=== PATIENT | female | born 1955 | race Caucasian/White ===

== ENCOUNTER 2017-04-15 18:40 | Emergency (ER) | payer MEDICARE ==
[~2017-04-15] VITALS: Ht 162.6 cm; Wt 100.0 kg
[~2017-04-15 18:40] MED LIST: ALBUTEROL S2.5 MG/.5 IN; CITALOPRAM20 MG PO; GLIPIZIDE10 M2 OR; HYDROCHLORO25 MG/TAB PO; LANTUS SC; LANTUS100 MG/ML SC; LEVOTHYROXIN100 MC1 PO; LEVOTHYROXIN200 MC2 PO; LOVASTATIN20 MG PO; MEDDOSEPAK PO; METFORMIN500 MG PO; NAPROSYN500 MG PO; NEBULIZE2; NOVOLOG SC; RANITIDINE150 MG PO; VENTOLIN HFA IN; ZITHROMAX250 MG PO
[2017-04-15 18:58] LABS: HEMATOCRIT 37.9 % (37.0-47.0); HEMOGLOBIN 12.2 g/dl (12.0-16.0); IMMATURE GRANULOCYTES 0.5 % (0.0-1.0); MEAN CELL VOLUME 89.8 fL CALC (80.0-100.0); MEAN CORPUSCULAR HGB 28.9 pG CALC (26.0-32.0); MEAN CORPUSCULAR HGB CONC 32.2 g/L CALC (32.0-36.0); NEUT# 5.42 thou/uL (2.00-7.15); RED BLOOD COUNT 4.22 mill/uL (4.20-5.60)
[2017-04-15 19:15] LABS: ACT PARTIAL THROMBO TIME 25.5 SECONDS (20.0-32.5); PROTHROMBIN TIME 10.7 SECONDS (9.0-12.5)
[2017-04-15 19:17] LABS: ALBUMIN 4.1 g/dL (3.2-5.0); ALKALINE PHOSPHATASE 483 u/l (38-126); ANION GAP 15 (6-22 (CALC)); BILIRUBIN, TOTAL 1.1 mg/dL (0.0-1.4); BUN 20 mg/dL (8-23); BUN/CREATININE RATIO 19 (12-20 (CALC)); CALCIUM 9.7 mg/dL (8.4-10.2); CARBON DIOXIDE 27 mmol/l (22-30); CHLORIDE 98 mmol/l (95-108); CREATININE 1.1 mg/dL (0.5-1.0); GFR 50 ML/MIN (>=60 (CALC)); GFR FOR AFR.AMER. > 60 ML/MIN (>=60 (CALC)); POTASSIUM 4.6 mmol/l (3.5-5.1); SGOT/AST 103 u/l (9-36); SGPT/ALT 76 u/l (11-66); SODIUM 135 mmol/l (137-146); TOTAL PROTEIN 8.2 g/dL (6.3-8.2)
[2017-04-15 19:21] LABS: GLUCOSE 474 mg/dL (82-115)
[2017-04-15 19:28] LABS: MYOGLOBIN 63 ng/mL (0 - 62)
[2017-04-15 19:57] VITALS: BP 120/74
== END 2017-04-15 20:03 | disposition short-term general hospital (02) ==
LOC: ED 18:40
PROVIDERS: Emergency Medicine
DX: I63.9 Cerebral infarction, unspecified (principal); G81.91 Hemiplegia, unspecified affecting right dominant side; R20.0 Anesthesia of skin; E11.9 Type 2 diabetes mellitus without complications; E03.9 Hypothyroidism, unspecified; Z91.14 Patient's other noncompliance with medication regimen; I10 Essential (primary) hypertension; F41.9 Anxiety disorder, unspecified; J45.909 Unspecified asthma, uncomplicated; F17.210 Nicotine dependence, cigarettes, uncomplicated; R29.706 NIHSS score 6; Z79.4 Long term (current) use of insulin
CPT/HCPCS: J2997

== ENCOUNTER 2018-01-13 12:37 | Inpatient (IN) | payer MEDICARE ==
[~2018-01-13] VITALS: Ht 162.6 cm; Wt 122.0 kg
[2018-01-13 13:26] LABS: IMMATURE GRANULOCYTES 0.3 % (0.0-5.0); NEUT# 4.46 thou/uL (2.00-7.15); RED BLOOD COUNT 3.23 mill/uL (4.20-5.60); RED CELL DISTRI WIDTH 21.1 % (11.5-15.5)
[2018-01-13 13:29] LABS: HEMATOCRIT 29.4 % (37.0-47.0); HEMOGLOBIN 9.7 g/dl (12.0-16.0)
[2018-01-13 13:40] LABS: PROTHROMBIN TIME 11.5 SECONDS (9.0-12.5)
[2018-01-13 14:14] LABS: CREATININE 2.2 mg/dL (0.5-1.0); POTASSIUM 5.8 mmol/l (3.5-5.1)
[2018-01-13 14:15] LABS: ALBUMIN 3.4 g/dL (3.2-5.0); BILIRUBIN, TOTAL 0.4 mg/dL (0.0-1.4); TOTAL PROTEIN 6.6 g/dL (6.3-8.2)
[2018-01-13 16:45] VITALS: BP 96/52
[2018-01-13 19:00] VITALS: BP 105/63
[2018-01-14 00:15] VITALS: BP 105/62
[2018-01-14 02:11] LABS: URINE BILIRUBIN - DIPSTICK NEGATIVE (NEGATIVE); URINE BLOOD DIPSTICK NEGATIVE (NEGATIVE); URINE COLOR YELLOW; URINE GLUCOSE - DIPSTICK NEGATIVE (NEGATIVE); URINE KETONE NEGATIVE (NEGATIVE); URINE LEUK ESTERASE NEGATIVE (Negative); URINE NITRITE - DIPSTICK NEGATIVE (Negative); URINE PH 5.5 (4.5-8.0); URINE PROTEIN - DIPSTICK NEGATIVE (NEG-TRACE); URINE UROBILINOGEN - DIPSTICK 0.2 E.U./dL (0.2)
[2018-01-14 02:17] LABS: URINE CLARITY CLEAR
[2018-01-14 04:50] VITALS: BP 102/62
[2018-01-14 05:45] LABS: HEMATOCRIT 25.6 % (37.0-47.0); HEMOGLOBIN 8.1 g/dl (12.0-16.0); MEAN CELL VOLUME 93.1 fL CALC (80.0-100.0); MEAN CORPUSCULAR HGB 29.5 pG CALC (26.0-32.0); MEAN CORPUSCULAR HGB CONC 31.6 g/L CALC (32.0-36.0); RED BLOOD COUNT 2.75 mill/uL (4.20-5.60); RED CELL DISTRI WIDTH 21.2 % (11.5-15.5)
[2018-01-14 06:05] LABS: CREATININE 1.7 mg/dL (0.5-1.0); MAGNESIUM 1.7 mg/dL (1.6-2.3)
[2018-01-14 06:12] LABS: POTASSIUM 5.6 mmol/l (3.5-5.1)
[2018-01-14 07:48] VITALS: BP 107/55
[2018-01-14 11:00] VITALS: BP 115/58
[2018-01-14] MEDS ORDERED: LASIX40 MG PO (13:06)
[2018-01-14] MEDS ORDERED: ASPIRIN LOW DOS81 M1 PO (13:07)
[2018-01-14] MEDS ORDERED: DITROPAN PO (13:08)
[2018-01-14] MEDS ORDERED: LISINOPRIL20 MG PO (13:08)
[2018-01-14] MEDS ORDERED: GABAPENTIN600 MG PO (13:09)
[2018-01-14 16:00] VITALS: BP 130/55
[2018-01-14 19:33] VITALS: BP 109/54
[2018-01-15 00:34] VITALS: BP 130/71
[2018-01-15 04:24] VITALS: BP 97/54
[2018-01-15 05:13] LABS: HEMATOCRIT 24.9 % (37.0-47.0); HEMOGLOBIN 8.1 g/dl (12.0-16.0); IMMATURE GRANULOCYTES 0.3 % (0.0-5.0); MEAN CELL VOLUME 92.6 fL CALC (80.0-100.0); MEAN CORPUSCULAR HGB 30.1 pG CALC (26.0-32.0); MEAN CORPUSCULAR HGB CONC 32.5 g/L CALC (32.0-36.0); NEUT# 3.8 thou/uL (2.00-7.15); RED BLOOD COUNT 2.69 mill/uL (4.20-5.60); RED CELL DISTRI WIDTH 20.7 % (11.5-15.5)
[2018-01-15 05:31] LABS: CREATININE 1.3 mg/dL (0.5-1.0); POTASSIUM 4.7 mmol/l (3.5-5.1)
[2018-01-15 08:09] VITALS: BP 130/59
[2018-01-15 12:09] VITALS: BP 128/68
[2018-01-15 16:30] VITALS: BP 121/63
[2018-01-15 19:05] VITALS: BP 117/61
[2018-01-16 00:20] VITALS: BP 132/63
[2018-01-16 04:42] VITALS: BP 137/61
[2018-01-16 07:52] VITALS: BP 148/69
[2018-01-16 12:00] VITALS: BP 137/68
[2018-01-16 19:37] VITALS: BP 134/61
[2018-01-17] VITALS (18 sets, daily range): BP systolic 82–165; BP diastolic 38–76
[2018-01-18 04:52] VITALS: BP 155/67
[2018-01-18 05:59] LABS: HEMATOCRIT 28.5 % (37.0-47.0); HEMOGLOBIN 9.3 g/dl (12.0-16.0); IMMATURE GRANULOCYTES 0.4 % (0.0-5.0); MEAN CELL VOLUME 89.9 fL CALC (80.0-100.0); MEAN CORPUSCULAR HGB 29.3 pG CALC (26.0-32.0); MEAN CORPUSCULAR HGB CONC 32.6 g/L CALC (32.0-36.0); NEUT# 7.94 thou/uL (2.00-7.15); RED BLOOD COUNT 3.17 mill/uL (4.20-5.60); RED CELL DISTRI WIDTH 21.2 % (11.5-15.5)
[2018-01-18 06:02] LABS: BUN 16 mg/dL (8-23); CARBON DIOXIDE 26 mmol/l (22-30); CHLORIDE 107 mmol/l (95-108); GFR 56 ML/MIN (>=60 (CALC)); GFR FOR AFR.AMER. > 60 ML/MIN (>=60 (CALC)); POTASSIUM 4.6 mmol/l (3.5-5.1); SODIUM 138 mmol/l (137-146)
[2018-01-18 06:16] LABS: ALBUMIN 2.6 g/dL (3.2-5.0)
[2018-01-18 08:00] VITALS: BP 131/56
[2018-01-18 10:58] VITALS: BP 118/68
[2018-01-18 15:18] VITALS: BP 107/68
[2018-01-18 19:00] VITALS: BP 136/61
[2018-01-19 00:20] VITALS: BP 123/68
[2018-01-19 04:44] VITALS: BP 121/63
[2018-01-19 05:31] LABS: HEMATOCRIT 27.8 % (37.0-47.0); IMMATURE GRANULOCYTES 0.5 % (0.0-5.0); MEAN CELL VOLUME 90.6 fL CALC (80.0-100.0); MEAN CORPUSCULAR HGB 29.3 pG CALC (26.0-32.0); MEAN CORPUSCULAR HGB CONC 32.4 g/L CALC (32.0-36.0); NEUT# 6.02 thou/uL (2.00-7.15); RED BLOOD COUNT 3.07 mill/uL (4.20-5.60); RED CELL DISTRI WIDTH 20.9 % (11.5-15.5)
[2018-01-19 05:42] LABS: CREATININE 1.2 mg/dL (0.5-1.0); POTASSIUM 4.4 mmol/l (3.5-5.1)
[2018-01-19 09:10] VITALS: BP 114/41
[2018-01-19 11:12] VITALS: BP 117/64
[2018-01-19 14:57] VITALS: BP 124/69
[2018-01-19 20:00] VITALS: BP 125/58
[2018-01-20 00:06] VITALS: BP 94/51
[2018-01-20 04:00] VITALS: BP 127/54
[2018-01-20 05:07] LABS: HEMATOCRIT 27.7 % (37.0-47.0); HEMOGLOBIN 8.7 g/dl (12.0-16.0)
[2018-01-20 08:12] VITALS: BP 116/63
[2018-01-20 11:12] VITALS: BP 117/49
[2018-01-20] MEDS ORDERED: CELEXA40 M1 PO (12:14)
[2018-01-20] MEDS ORDERED: ATORVASTATIN CA40 MG PO (12:15)
[2018-01-20] MEDS ORDERED: ALDACTONE25 MG PO (12:16)
[2018-01-20] MEDS ORDERED: LEVOTHYROXIN125 MCG PO (12:16)
[2018-01-20] MEDS ORDERED: NOVOLIN 70/30 SC (12:17)
[2018-01-20] MEDS ORDERED: ASPIRIN EC325 MG PO (12:21)
[2018-01-20] MEDS ORDERED: PERCOCET 10/31 COMBO PO (12:21)
[2018-01-20 15:25] VITALS: BP 118/50
== END 2018-01-20 17:56 | DRG 481 ==
LOC: ED 12:37 → ED-I 15:22 → ED 15:55 → MS2 15:56
PROVIDERS: Emergency Medicine; Internal Medicine Nephrology; Nurse Practitioner; Nurse Practitioner Family; Orthopaedic Surgery; ADMIT Internal Medicine; ATTEND Internal Medicine
PROC: 0T9B70Z Drainage of Bladder with Drainage Device, Via Natural or Artificial Opening (ICD-10-PCS; 2018-01-14)
PROC: 0QSB04Z Reposition Right Lower Femur with Internal Fixation Device, Open Approach (ICD-10-PCS; principal; 2018-01-17)
PROC: 30233N1 Transfusion of Nonautologous Red Blood Cells into Peripheral Vein, Percutaneous Approach (ICD-10-PCS; 2018-01-17)
PROC: 30233N1 Transfusion of Nonautologous Red Blood Cells into Peripheral Vein, Percutaneous Approach (ICD-10-PCS; 2018-01-17)
PROC: 0T9B70Z Drainage of Bladder with Drainage Device, Via Natural or Artificial Opening (ICD-10-PCS; 2018-01-19)
DX: S72.451A Displaced supracondylar fracture without intracondylar extension of lower end of right femur, initial encounter for closed fracture (principal); Z68.42 Body mass index [BMI] 45.0-49.9, adult; N17.9 Acute kidney failure, unspecified; I12.9 Hypertensive chronic kidney disease with stage 1 through stage 4 chronic kidney disease, or unspecified chronic kidney disease; E11.22 Type 2 diabetes mellitus with diabetic chronic kidney disease; N18.3 Chronic kidney disease, stage 3 (moderate); D63.1 Anemia in chronic kidney disease; E86.0 Dehydration; T50.1X5A Adverse effect of loop [high-ceiling] diuretics, initial encounter; E66.01 Morbid (severe) obesity due to excess calories; E11.65 Type 2 diabetes mellitus with hyperglycemia; E87.5 Hyperkalemia; E03.9 Hypothyroidism, unspecified; E78.5 Hyperlipidemia, unspecified; F17.210 Nicotine dependence, cigarettes, uncomplicated; I69.313 Psychomotor deficit following cerebral infarction; K59.00 Constipation, unspecified; R33.8 Other retention of urine; F32.9 Major depressive disorder, single episode, unspecified; W18.30XA Fall on same level, unspecified, initial encounter; Z79.4 Long term (current) use of insulin
CPT/HCPCS: P9016

== ENCOUNTER → 2018-03-24 | Outpatient (REF) | payer MEDICARE ==
[~2018-03-24] MED LIST changes: +ALDACTONE25 MG PO; +ASPIRIN EC325 MG PO; +ASPIRIN LOW DOS81 M1 PO; +ATORVASTATIN CA40 MG PO; +CELEXA40 M1 PO; +DITROPAN PO; +GABAPENTIN600 MG PO; +LASIX40 MG PO; +LEVOTHYROXIN125 MCG PO; +LISINOPRIL20 MG PO; +NOVOLIN 70/30 SC; +PERCOCET 10/31 COMBO PO
== END | disposition home or self-care (01) ==
LOC: ULTRASND 12:21
PROVIDERS: ATTEND Internal Medicine Nephrology
DX: R60.0 Localized edema (principal); N39.0 Urinary tract infection, site not specified; B96.20 Unspecified Escherichia coli [E. coli] as the cause of diseases classified elsewhere

== ENCOUNTER 2018-07-19 16:00 | Outpatient (RCR) | payer MEDICARE | END 2018-08-10 08:53 | disposition home or self-care (01) | LOC: PT 16:00 | PROVIDERS: ATTEND Orthopaedic Surgery | DX: Z47.89 Encounter for other orthopedic aftercare (principal); S72.8X1D Other fracture of right femur, subsequent encounter for closed fracture with routine healing ==

== ENCOUNTER 2019-07-17 | Emergency (ER) | payer MEDICARE ==
[2019-07-17] MEDS ORDERED: NOVOLIN N100 UNIT/1 SC (15:55)
[2019-07-17] MEDS ORDERED: NOVOLIN R100 UNIT/M SC (15:55)
[2019-07-17] MEDS ORDERED: VITAMIN D1000 UNIT PO (15:57)
[2019-07-17] MEDS ORDERED: METOLAZONE5 MG PO (16:01)
[2019-07-17] MEDS ORDERED: HYDROCODONE BIT1 TA7 PO (16:11)
[2019-07-17] MEDS ORDERED: DICLOFENAC SODI75 MG PO (16:36)
[2019-07-17 16:39] LABS: IMMATURE GRANULOCYTES 0.2 % (0.0-5.0); MEAN CELL VOLUME 95.2 fL CALC (80.0-100.0); MEAN CORPUSCULAR HGB 31.1 pG CALC (26.0-32.0); MEAN CORPUSCULAR HGB CONC 32.7 g/L CALC (32.0-36.0); NEUT# 2.61 thou/uL (2.00-7.15); RED BLOOD COUNT 3.92 mill/uL (4.20-5.60); RED CELL DISTRI WIDTH 13.4 % (11.5-15.5)
[2019-07-17 16:40] LABS: HEMATOCRIT 37.3 % (37.0-47.0); HEMOGLOBIN 12.2 g/dl (12.0-16.0)
[2019-07-17 17:01] LABS: ALKALINE PHOSPHATASE 138 u/l (38-126); ANION GAP 13 (6-22 (CALC)); BUN 23 mg/dL (8-23); BUN/CREATININE RATIO 18 (12-20 (CALC)); CARBON DIOXIDE 32 mmol/l (22-30); CHLORIDE 95 mmol/l (95-108); CREATININE 1.3 mg/dL (0.5-1.0); GFR 41 ML/MIN (>=60 (CALC)); GFR FOR AFR.AMER. 50 ML/MIN (>=60 (CALC)); POTASSIUM 4.3 mmol/l (3.5-5.1); SGOT/AST 38 u/l (9-36); SODIUM 135 mmol/l (137-146); TOTAL PROTEIN 7.7 g/dL (6.3-8.2)
[2019-07-17 17:12] LABS: MYOGLOBIN 117 ng/mL (0 - 62)
[2019-07-17 17:13] LABS: BILIRUBIN, TOTAL 0.6 mg/dL (0.0-1.4)
[2019-07-17] MEDS ORDERED: FLONASE AL50 MCG/ACT (18:19)
[2019-07-17] MEDS ORDERED: GENTAMICIN SULF5 ML OD (18:19)
[2019-07-17] MEDS ORDERED: KEFLEX500 M1 PO (18:19)
== END 2019-07-17 19:08 | disposition home or self-care (01) ==
PROVIDERS: Emergency Medicine
DX: J32.9 Chronic sinusitis, unspecified (principal); J02.9 Acute pharyngitis, unspecified; I69.998 Other sequelae following unspecified cerebrovascular disease; E11.9 Type 2 diabetes mellitus without complications; I10 Essential (primary) hypertension; Z79.4 Long term (current) use of insulin

== ENCOUNTER 2019-12-26 10:03 | Emergency (ER) | payer MEDICARE ==
[~2019-12-26] VITALS: Ht 162.6 cm; Wt 125.0 kg
[~2019-12-26 10:03] MED LIST changes: +DICLOFENAC SODI75 MG PO; +FLONASE AL50 MCG/ACT; +GENTAMICIN SULF5 ML OD; +HYDROCODONE BIT1 TA7 PO; +KEFLEX500 M1 PO; +METOLAZONE5 MG PO; +NOVOLIN N100 UNIT/1 SC; +NOVOLIN R100 UNIT/M SC; +VITAMIN D1000 UNIT PO
[2019-12-26] MEDS ORDERED: NAPROXEN500 MG PO (11:43)
[2019-12-26 11:50] VITALS: BP 120/58
== END 2019-12-26 12:12 | disposition home or self-care (01) ==
LOC: ED 10:03
PROC: 0HQFXZZ Repair Right Hand Skin, External Approach (ICD-10-PCS; principal; 2019-12-26)
DX: S52.501A Unspecified fracture of the lower end of right radius, initial encounter for closed fracture (principal); S00.83XA Contusion of other part of head, initial encounter; S61.411A Laceration without foreign body of right hand, initial encounter; M25.462 Effusion, left knee; M25.461 Effusion, right knee; E11.9 Type 2 diabetes mellitus without complications; I10 Essential (primary) hypertension; V00.811A Fall from moving wheelchair (powered), initial encounter; Y92.009 Unspecified place in unspecified non-institutional (private) residence as the place of occurrence of the external cause; Z79.4 Long term (current) use of insulin

== ENCOUNTER 2020-07-16 16:16 | Inpatient (IN) | payer MEDICARE ==
[~2020-07-16] VITALS: Ht 162.6 cm; Wt 115.0 kg
[~2020-07-16 16:16] MED LIST changes: +NAPROXEN500 MG PO
[2020-07-16 17:47] LABS: HEMATOCRIT 30.9 % (37.0-47.0); HEMOGLOBIN 9.7 g/dl (12.0-16.0); MEAN CELL VOLUME 101.3 fL CALC (80.0-100.0); MEAN CORPUSCULAR HGB 31.8 pG CALC (26.0-32.0); MEAN CORPUSCULAR HGB CONC 31.4 g/dL CAL (32.0-36.0); NEUT# 1.42 thou/uL (2.00-7.15); RED BLOOD COUNT 3.05 mill/uL (4.20-5.60); RED CELL DISTRI WIDTH 14.8 % (11.5-15.5)
[2020-07-16 17:57] LABS: ALBUMIN 3.4 g/dL (3.2-5.0); ALKALINE PHOSPHATASE 117 u/l (38-126); ANION GAP 11 (6-22 (CALC)); BILIRUBIN, TOTAL 0.7 mg/dL (0.0-1.4); BUN/CREATININE RATIO 24 (12-20 (CALC)); CARBON DIOXIDE 31 mmol/l (22-30); CHLORIDE 98 mmol/l (95-108); CREATININE 2.1 mg/dL (0.5-1.0); GFR 24 ML/MIN (>=60 (CALC)); GFR FOR AFR.AMER. 29 ML/MIN (>=60 (CALC)); POTASSIUM 3.9 mmol/l (3.5-5.1); SGOT/AST 40 u/l (9-36); SODIUM 137 mmol/l (137-146); TOTAL PROTEIN 6.7 g/dL (6.3-8.2)
[2020-07-16 18:01] LABS: BUN 51 mg/dL (8-23)
[2020-07-16 21:26] LABS: URINE BILIRUBIN - DIPSTICK NEGATIVE (NEGATIVE); URINE BLOOD DIPSTICK NEGATIVE (NEGATIVE); URINE COLOR YELLOW; URINE GLUCOSE - DIPSTICK NEGATIVE (NEGATIVE); URINE KETONE NEGATIVE (NEGATIVE); URINE LEUK ESTERASE NEGATIVE (NEGATIVE); URINE NITRITE - DIPSTICK NEGATIVE (Negative); URINE PH 5.5 (4.5-8.0); URINE PROTEIN - DIPSTICK NEGATIVE (NEG-TRACE); URINE UROBILINOGEN - DIPSTICK 0.2 E.U./dL (0.2)
[2020-07-16 22:47] VITALS: BP 145/62
[2020-07-17] VITALS: BP 119/63
[2020-07-17 04:00] VITALS: BP 137/59
[2020-07-17 06:35] LABS: INTERNATIONAL NORMALIZED RATIO 1.2 RATIO (0.7-1.3); PROTHROMBIN TIME 11.6 SECONDS (9.0-12.5)
[2020-07-17 06:40] LABS: HEMATOCRIT 31.4 % (37.0-47.0); MEAN CORPUSCULAR HGB 31.8 pG CALC (26.0-32.0); MEAN CORPUSCULAR HGB CONC 31.8 g/dL CAL (32.0-36.0); NEUT# 1.43 thou/uL (2.00-7.15); RED BLOOD COUNT 3.14 mill/uL (4.20-5.60); RED CELL DISTRI WIDTH 14.5 % (11.5-15.5)
[2020-07-17 06:58] LABS: ALBUMIN 3.1 g/dL (3.2-5.0); BILIRUBIN, TOTAL 0.7 mg/dL (0.0-1.4); CHOLESTEROL HDL RATIO 2.3 (<4.4 (CALC)); POTASSIUM 4.1 mmol/l (3.5-5.1); TOTAL PROTEIN 6.2 g/dL (6.3-8.2)
[2020-07-17 08:00] VITALS: BP 115/63
[2020-07-17 11:15] VITALS: BP 115/56
[2020-07-17 16:50] VITALS: BP 102/52
[2020-07-17 20:30] VITALS: BP 94/54
[2020-07-18] VITALS (7 sets, daily range): BP systolic 86–103; BP diastolic 49–56
[2020-07-18 05:29] LABS: ALBUMIN 2.6 g/dL (3.2-5.0); CREATININE 1.9 mg/dL (0.5-1.0); POTASSIUM 3.6 mmol/l (3.5-5.1)
[2020-07-19 04:15] VITALS: BP 101/58
[2020-07-19 05:55] LABS: ALBUMIN 2.7 g/dL (3.2-5.0); CREATININE 1.9 mg/dL (0.5-1.0); POTASSIUM 3.6 mmol/l (3.5-5.1)
[2020-07-19 08:52] VITALS: BP 92/44
[2020-07-19 10:55] VITALS: BP 113/41
[2020-07-19 15:30] VITALS: BP 98/50
[2020-07-19 20:00] VITALS: BP 121/68
[2020-07-20 00:07] VITALS: BP 93/54
[2020-07-20 04:00] VITALS: BP 90/52
[2020-07-20 04:56] LABS: HEMOGLOBIN 9.6 g/dl (12.0-16.0); MEAN CORPUSCULAR HGB 31.7 pG CALC (26.0-32.0); RED BLOOD COUNT 3.03 mill/uL (4.20-5.60); RED CELL DISTRI WIDTH 14.2 % (11.5-15.5)
[2020-07-20 05:24] LABS: ALBUMIN 2.7 g/dL (3.2-5.0); ALKALINE PHOSPHATASE 78 u/l (38-126); ANION GAP 6 (6-22 (CALC)); BILIRUBIN, TOTAL 0.5 mg/dL (0.0-1.4); BUN 54 mg/dL (8-23); BUN/CREATININE RATIO 28 (12-20 (CALC)); CHLORIDE 94 mmol/l (95-108); CREATININE 1.9 mg/dL (0.5-1.0); GFR 27 ML/MIN (>=60 (CALC)); GFR FOR AFR.AMER. 32 ML/MIN (>=60 (CALC)); POTASSIUM 3.4 mmol/l (3.5-5.1); SGOT/AST 34 u/l (9-36); SODIUM 137 mmol/l (137-146); TOTAL PROTEIN 5.4 g/dL (6.3-8.2)
[2020-07-20 05:25] LABS: CARBON DIOXIDE > 40 mmol/l (22-30)
[2020-07-20 07:29] VITALS: BP 104/65
[2020-07-20 11:30] VITALS: BP 90/52
[2020-07-20 17:18] VITALS: BP 102/58
[2020-07-20 18:46] VITALS: BP 92/53
[2020-07-21] VITALS: BP 101/57
[2020-07-21 04:08] VITALS: BP 120/57
[2020-07-21 05:35] LABS: HEMATOCRIT 29.2 % (37.0-47.0); HEMOGLOBIN 9.4 g/dl (12.0-16.0); IMMATURE GRANULOCYTES 0.4 % (0.0-5.0); MEAN CELL VOLUME 99.3 fL CALC (80.0-100.0); MEAN CORPUSCULAR HGB CONC 32.2 g/dL CAL (32.0-36.0); NEUT# 1.27 thou/uL (2.00-7.15); RED BLOOD COUNT 2.94 mill/uL (4.20-5.60); RED CELL DISTRI WIDTH 14.4 % (11.5-15.5)
[2020-07-21 06:01] LABS: ALBUMIN 2.7 g/dL (3.2-5.0); BILIRUBIN, TOTAL 0.4 mg/dL (0.0-1.4); CREATININE 1.9 mg/dL (0.5-1.0); POTASSIUM 3.4 mmol/l (3.5-5.1); TOTAL PROTEIN 5.3 g/dL (6.3-8.2)
[2020-07-21 07:28] VITALS: BP 111/45
[2020-07-21 10:20] VITALS: BP 98/50
[2020-07-21 15:20] VITALS: BP 107/53
[2020-07-21 19:20] VITALS: BP 109/69
[2020-07-22] VITALS: BP 103/52
[2020-07-22 04:00] VITALS: BP 104/59
[2020-07-22 07:08] LABS: CREATININE 1.7 mg/dL (0.5-1.0); POTASSIUM 3.6 mmol/l (3.5-5.1)
[2020-07-22 07:54] VITALS: BP 105/58
[2020-07-22 11:00] VITALS: BP 121/67
[2020-07-22 16:14] VITALS: BP 120/60
[2020-07-22 18:56] VITALS: BP 112/57
[2020-07-23] VITALS: BP 110/63
[2020-07-23 04:00] VITALS: BP 122/69
[2020-07-23 05:19] LABS: HEMOGLOBIN 9.8 g/dl (12.0-16.0); IMMATURE GRANULOCYTES 0.3 % (0.0-5.0); MEAN CORPUSCULAR HGB 31.6 pG CALC (26.0-32.0); MEAN CORPUSCULAR HGB CONC 31.6 g/dL CAL (32.0-36.0); NEUT# 1.67 thou/uL (2.00-7.15); RED BLOOD COUNT 3.1 mill/uL (4.20-5.60); RED CELL DISTRI WIDTH 14.7 % (11.5-15.5)
[2020-07-23 05:38] LABS: ALBUMIN 2.9 g/dL (3.2-5.0); CREATININE 1.7 mg/dL (0.5-1.0); POTASSIUM 3.5 mmol/l (3.5-5.1); TOTAL PROTEIN 5.7 g/dL (6.3-8.2)
[2020-07-23 05:42] LABS: BILIRUBIN, TOTAL 0.6 mg/dL (0.0-1.4)
[2020-07-23 08:14] VITALS: BP 113/64
[2020-07-23 10:40] VITALS: BP 95/56
[2020-07-23] MEDS ORDERED: ALDACTONE25 MG PO (14:58)
== END 2020-07-23 15:40 | DRG 432 ==
LOC: ED 16:16 → ED-I 21:38 → ED 21:44 → MS2 21:45
PROVIDERS: Family Medicine; Internal Medicine Nephrology; Nurse Practitioner; Nurse Practitioner Family; Physician Assistant; ADMIT Internal Medicine; ATTEND Internal Medicine
PROC: 0W9G3ZZ Drainage of Peritoneal Cavity, Percutaneous Approach (ICD-10-PCS; principal; 2020-07-17)
DX: K74.60 Unspecified cirrhosis of liver (principal); N17.0 Acute kidney failure with tubular necrosis; R18.8 Other ascites; Z68.43 Body mass index [BMI] 50.0-59.9, adult; I87.312 Chronic venous hypertension (idiopathic) with ulcer of left lower extremity; L97.828 Non-pressure chronic ulcer of other part of left lower leg with other specified severity; I13.0 Hypertensive heart and chronic kidney disease with heart failure and stage 1 through stage 4 chronic kidney disease, or unspecified chronic kidney disease; E87.1 Hypo-osmolality and hyponatremia; I69.951 Hemiplegia and hemiparesis following unspecified cerebrovascular disease affecting right dominant side; I50.9 Heart failure, unspecified; E11.22 Type 2 diabetes mellitus with diabetic chronic kidney disease; N18.30 Chronic kidney disease, stage 3 unspecified; D63.1 Anemia in chronic kidney disease; E11.51 Type 2 diabetes mellitus with diabetic peripheral angiopathy without gangrene; E11.40 Type 2 diabetes mellitus with diabetic neuropathy, unspecified; J44.9 Chronic obstructive pulmonary disease, unspecified; E87.6 Hypokalemia; E78.5 Hyperlipidemia, unspecified; I25.10 Atherosclerotic heart disease of native coronary artery without angina pectoris; K21.9 Gastro-esophageal reflux disease without esophagitis; E03.9 Hypothyroidism, unspecified; E66.01 Morbid (severe) obesity due to excess calories; Z79.4 Long term (current) use of insulin; Z86.14 Personal history of Methicillin resistant Staphylococcus aureus infection; Z87.891 Personal history of nicotine dependence; Z74.01 Bed confinement status; Z20.822 Contact with and (suspected) exposure to COVID-19
CPT/HCPCS: A4627; J1756; P9047; Q5106 EC

== ENCOUNTER 2020-08-05 17:17 | Observation (INO) | payer MEDICARE ==
[~2020-08-05] VITALS: Ht 162.6 cm; Wt 116.6 kg
[2020-08-05 19:34] LABS: HEMATOCRIT 34.3 % (37.0-47.0); HEMOGLOBIN 10.8 g/dl (12.0-16.0); IMMATURE GRANULOCYTES 0.2 % (0.0-5.0); MEAN CELL VOLUME 99.4 fL CALC (80.0-100.0); MEAN CORPUSCULAR HGB 31.3 pG CALC (26.0-32.0); MEAN CORPUSCULAR HGB CONC 31.5 g/dL CAL (32.0-36.0); NEUT# 2.47 thou/uL (2.00-7.15); RED BLOOD COUNT 3.45 mill/uL (4.20-5.60); RED CELL DISTRI WIDTH 14.8 % (11.5-15.5)
[2020-08-05 19:55] LABS: ACT PARTIAL THROMBO TIME 25.6 SECONDS (20.0-32.5); ALKALINE PHOSPHATASE 132 u/l (38-126); ANION GAP 12 (6-22 (CALC)); BILIRUBIN, TOTAL 0.8 mg/dL (0.0-1.4); CARBON DIOXIDE 34 mmol/l (22-30); CHLORIDE 92 mmol/l (95-108); INTERNATIONAL NORMALIZED RATIO 1.1 RATIO (0.7-1.3); LIPASE 158 u/l (23-300); POTASSIUM 3.8 mmol/l (3.5-5.1); PROTHROMBIN TIME 10.7 SECONDS (9.0-12.5); SGOT/AST 39 u/l (9-36); SODIUM 134 mmol/l (137-146)
[2020-08-05 19:57] LABS: BUN 68 mg/dL (8-23)
[2020-08-05 19:58] LABS: ALBUMIN 3.9 g/dL (3.2-5.0); BUN/CREATININE RATIO 23 (12-20 (CALC)); GFR 16 ML/MIN (>=60 (CALC)); GFR FOR AFR.AMER. 19 ML/MIN (>=60 (CALC)); TOTAL PROTEIN 7.5 g/dL (6.3-8.2)
[2020-08-05 22:45] VITALS: BP 107/59
[2020-08-06 04:00] VITALS: BP 108/64
[2020-08-06 05:27] LABS: HEMATOCRIT 29.8 % (37.0-47.0); HEMOGLOBIN 9.4 g/dl (12.0-16.0); MEAN CELL VOLUME 99.7 fL CALC (80.0-100.0); MEAN CORPUSCULAR HGB 31.4 pG CALC (26.0-32.0); MEAN CORPUSCULAR HGB CONC 31.5 g/dL CAL (32.0-36.0); NEUT# 1.52 thou/uL (2.00-7.15); RED BLOOD COUNT 2.99 mill/uL (4.20-5.60); RED CELL DISTRI WIDTH 14.8 % (11.5-15.5)
[2020-08-06 05:47] LABS: BILIRUBIN, TOTAL 0.6 mg/dL (0.0-1.4); CREATININE 2.8 mg/dL (0.5-1.0); POTASSIUM 3.5 mmol/l (3.5-5.1)
[2020-08-06 08:46] VITALS: BP 98/43
[2020-08-06] MEDS ORDERED: DICLOFENAC SODIUM1 % TOP (11:13)
[2020-08-06] MEDS ORDERED: PREMIUM LIDOCAINE5 % TOP (11:15)
[2020-08-06 15:00] VITALS: BP 134/69
[2020-08-06 20:00] VITALS: BP 117/67
[2020-08-07 04:00] VITALS: BP 95/53
[2020-08-07 05:45] LABS: HEMATOCRIT 29.6 % (37.0-47.0); HEMOGLOBIN 9.5 g/dl (12.0-16.0); MEAN CELL VOLUME 97.7 fL CALC (80.0-100.0); MEAN CORPUSCULAR HGB 31.4 pG CALC (26.0-32.0); MEAN CORPUSCULAR HGB CONC 32.1 g/dL CAL (32.0-36.0); RED BLOOD COUNT 3.03 mill/uL (4.20-5.60); RED CELL DISTRI WIDTH 14.7 % (11.5-15.5)
[2020-08-07 06:21] LABS: CREATININE 2.1 mg/dL (0.5-1.0); MAGNESIUM 2.4 mg/dL (1.6-2.3); POTASSIUM 3.6 mmol/l (3.5-5.1)
[2020-08-07 08:17] VITALS: BP 100/59
[2020-08-07 15:51] VITALS: BP 115/65; BP 153/81
[2020-08-07 19:00] VITALS: BP 120/58
[2020-08-08 04:00] VITALS: BP 108/48
[2020-08-08 05:40] LABS: ALBUMIN 2.9 g/dL (3.2-5.0); CREATININE 1.8 mg/dL (0.5-1.0); POTASSIUM 3.2 mmol/l (3.5-5.1)
[2020-08-08 07:46] VITALS: BP 113/61
== END 2020-08-08 14:50 ==
LOC: ED 17:17 → ED-I 21:00 → ED 21:27 → MS2 21:28
PROVIDERS: Family Medicine; Internal Medicine Nephrology; Nurse Practitioner; Nurse Practitioner Family; ADMIT Internal Medicine; ATTEND Internal Medicine
PROC: 0W9G3ZZ Drainage of Peritoneal Cavity, Percutaneous Approach (ICD-10-PCS; principal; 2020-08-06)
PROC: BW40ZZZ Ultrasonography of Abdomen (ICD-10-PCS; 2020-08-06)
DX: K74.60 Unspecified cirrhosis of liver (principal); R18.8 Other ascites; N17.9 Acute kidney failure, unspecified; I95.9 Hypotension, unspecified; E87.1 Hypo-osmolality and hyponatremia; E86.9 Volume depletion, unspecified; E11.22 Type 2 diabetes mellitus with diabetic chronic kidney disease; I12.9 Hypertensive chronic kidney disease with stage 1 through stage 4 chronic kidney disease, or unspecified chronic kidney disease; N18.30 Chronic kidney disease, stage 3 unspecified; D63.1 Anemia in chronic kidney disease; K76.6 Portal hypertension; R16.2 Hepatomegaly with splenomegaly, not elsewhere classified; I25.10 Atherosclerotic heart disease of native coronary artery without angina pectoris; I69.954 Hemiplegia and hemiparesis following unspecified cerebrovascular disease affecting left non-dominant side; E03.9 Hypothyroidism, unspecified; E11.40 Type 2 diabetes mellitus with diabetic neuropathy, unspecified; E66.9 Obesity, unspecified; Z68.42 Body mass index [BMI] 45.0-49.9, adult; Z87.891 Personal history of nicotine dependence; Z20.822 Contact with and (suspected) exposure to COVID-19

== ENCOUNTER 2020-08-22 16:20 | Observation (INO) | payer MEDICARE ==
[~2020-08-22] VITALS: Ht 162.6 cm; Wt 115.0 kg
[~2020-08-22 16:20] MED LIST changes: +DICLOFENAC SODIUM1 % TOP; +PREMIUM LIDOCAINE5 % TOP
[2020-08-22 17:43] LABS: HEMATOCRIT 33.9 % (37.0-47.0); HEMOGLOBIN 10.7 g/dl (12.0-16.0); IMMATURE GRANULOCYTES 0.3 % (0.0-5.0); MEAN CELL VOLUME 98.8 fL CALC (80.0-100.0); MEAN CORPUSCULAR HGB 31.2 pG CALC (26.0-32.0); MEAN CORPUSCULAR HGB CONC 31.6 g/dL CAL (32.0-36.0); RED BLOOD COUNT 3.43 mill/uL (4.20-5.60); RED CELL DISTRI WIDTH 14.7 % (11.5-15.5)
[2020-08-22 17:47] LABS: ALBUMIN 3.5 g/dL (3.2-5.0); BILIRUBIN, TOTAL 0.8 mg/dL (0.0-1.4); POTASSIUM 3.3 mmol/l (3.5-5.1)
[2020-08-22 17:48] LABS: INTERNATIONAL NORMALIZED RATIO 1.1 RATIO (0.7-1.3)
[2020-08-22 22:45] VITALS: BP 103/59
[2020-08-23 04:46] VITALS: BP 105/61
[2020-08-23 05:42] LABS: HEMATOCRIT 28.1 % (37.0-47.0); HEMOGLOBIN 8.8 g/dl (12.0-16.0); MEAN CELL VOLUME 98.6 fL CALC (80.0-100.0); MEAN CORPUSCULAR HGB 30.9 pG CALC (26.0-32.0); MEAN CORPUSCULAR HGB CONC 31.3 g/dL CAL (32.0-36.0); RED BLOOD COUNT 2.85 mill/uL (4.20-5.60); RED CELL DISTRI WIDTH 14.7 % (11.5-15.5)
[2020-08-23 06:06] LABS: CREATININE 1.9 mg/dL (0.5-1.0); MAGNESIUM 2.3 mg/dL (1.6-2.3); POTASSIUM 3.6 mmol/l (3.5-5.1)
[2020-08-23 06:11] LABS: INTERNATIONAL NORMALIZED RATIO 1.2 RATIO (0.7-1.3); PROTHROMBIN TIME 11.7 SECONDS (9.0-12.5)
[2020-08-23 07:47] LABS: URINE BILIRUBIN - DIPSTICK NEGATIVE (NEGATIVE); URINE BLOOD DIPSTICK NEGATIVE (NEGATIVE); URINE COLOR YELLOW; URINE GLUCOSE - DIPSTICK NEGATIVE (NEGATIVE); URINE KETONE NEGATIVE (NEGATIVE); URINE LEUK ESTERASE NEGATIVE (NEGATIVE); URINE NITRITE - DIPSTICK NEGATIVE (Negative); URINE PROTEIN - DIPSTICK NEGATIVE (NEG-TRACE); URINE UROBILINOGEN - DIPSTICK 0.2 E.U./dL (0.2)
== END 2020-08-23 15:24 ==
LOC: ED 16:20 → ED-I 19:10 → ED 19:19 → MS2 19:20
PROVIDERS: Emergency Medicine; Nurse Practitioner; ADMIT Internal Medicine; ATTEND Internal Medicine
PROC: 0W9G3ZZ Drainage of Peritoneal Cavity, Percutaneous Approach (ICD-10-PCS; principal; 2020-08-23)
PROC: BW40ZZZ Ultrasonography of Abdomen (ICD-10-PCS; 2020-08-23)
DX: K74.69 Other cirrhosis of liver (principal); R18.8 Other ascites; K72.90 Hepatic failure, unspecified without coma; E66.01 Morbid (severe) obesity due to excess calories; I12.9 Hypertensive chronic kidney disease with stage 1 through stage 4 chronic kidney disease, or unspecified chronic kidney disease; E11.22 Type 2 diabetes mellitus with diabetic chronic kidney disease; N18.9 Chronic kidney disease, unspecified; E11.40 Type 2 diabetes mellitus with diabetic neuropathy, unspecified; E11.622 Type 2 diabetes mellitus with other skin ulcer; L97.929 Non-pressure chronic ulcer of unspecified part of left lower leg with unspecified severity; I87.9 Disorder of vein, unspecified; D64.9 Anemia, unspecified; E03.9 Hypothyroidism, unspecified; I69.954 Hemiplegia and hemiparesis following unspecified cerebrovascular disease affecting left non-dominant side; Z68.43 Body mass index [BMI] 50.0-59.9, adult; Z79.4 Long term (current) use of insulin; Z87.891 Personal history of nicotine dependence; Z20.822 Contact with and (suspected) exposure to COVID-19

== ENCOUNTER 2020-09-05 12:53 | Emergency (ER) | payer MEDICARE ==
[~2020-09-05] VITALS: Ht 162.6 cm; Wt 120.0 kg
[2020-09-05 15:07] LABS: HEMATOCRIT 30.5 % (37.0-47.0); HEMOGLOBIN 9.9 g/dl (12.0-16.0); IMMATURE GRANULOCYTES 0.3 % (0.0-5.0); MEAN CELL VOLUME 97.1 fL CALC (80.0-100.0); MEAN CORPUSCULAR HGB 31.5 pG CALC (26.0-32.0); MEAN CORPUSCULAR HGB CONC 32.5 g/dL CAL (32.0-36.0); NEUT# 1.93 thou/uL (2.00-7.15); RED BLOOD COUNT 3.14 mill/uL (4.20-5.60); RED CELL DISTRI WIDTH 14.7 % (11.5-15.5)
[2020-09-05 15:14] LABS: URINE BILIRUBIN - DIPSTICK NEGATIVE (NEGATIVE); URINE BLOOD DIPSTICK NEGATIVE (NEGATIVE); URINE COLOR YELLOW; URINE GLUCOSE - DIPSTICK NEGATIVE (NEGATIVE); URINE KETONE NEGATIVE (NEGATIVE); URINE LEUK ESTERASE NEGATIVE (NEGATIVE); URINE PH 5.5 (4.5-8.0); URINE PROTEIN - DIPSTICK NEGATIVE (NEG-TRACE); URINE SPECIFIC GRAVITY 1.015; URINE UROBILINOGEN - DIPSTICK 0.2 E.U./dL (0.2)
[2020-09-05 15:15] LABS: URINE NITRITE - DIPSTICK NEGATIVE (Negative)
[2020-09-05 15:33] LABS: ACT PARTIAL THROMBO TIME 24.4 SECONDS (20.0-32.5); ALBUMIN 3.3 g/dL (3.2-5.0); ALKALINE PHOSPHATASE 110 u/l (38-126); AMYLASE 90 u/l (30-110); ANION GAP 9 (6-22 (CALC)); BILIRUBIN, TOTAL 0.8 mg/dL (0.0-1.4); BUN 61 mg/dL (8-23); BUN/CREATININE RATIO 25 (12-20 (CALC)); CARBON DIOXIDE 37 mmol/l (22-30); CHLORIDE 90 mmol/l (95-108); CREATININE 2.4 mg/dL (0.5-1.0); GFR 20 ML/MIN (>=60 (CALC)); GFR FOR AFR.AMER. 25 ML/MIN (>=60 (CALC)); INTERNATIONAL NORMALIZED RATIO 1.1 RATIO (0.7-1.3); LIPASE 442 u/l (23-300); PROTHROMBIN TIME 11.2 SECONDS (9.0-12.5); SGOT/AST 40 u/l (9-36); SODIUM 133 mmol/l (137-146); TOTAL PROTEIN 6.9 g/dL (6.3-8.2)
[2020-09-05 16:45] VITALS: BP 121/59
== END 2020-09-05 16:46 | disposition home or self-care (01) ==
LOC: ED 12:53
PROC: 0W9G3ZZ Drainage of Peritoneal Cavity, Percutaneous Approach (ICD-10-PCS; principal; 2020-09-05)
PROC: BW40ZZZ Ultrasonography of Abdomen (ICD-10-PCS; 2020-09-05)
DX: K74.60 Unspecified cirrhosis of liver (principal); R18.8 Other ascites; I12.9 Hypertensive chronic kidney disease with stage 1 through stage 4 chronic kidney disease, or unspecified chronic kidney disease; E11.22 Type 2 diabetes mellitus with diabetic chronic kidney disease; N18.9 Chronic kidney disease, unspecified; E66.01 Morbid (severe) obesity due to excess calories; Z86.73 Personal history of transient ischemic attack (TIA), and cerebral infarction without residual deficits; Z79.4 Long term (current) use of insulin
CPT/HCPCS: P9047

== ENCOUNTER 2020-10-07 19:45 | Observation (INO) | payer MEDICARE ==
[~2020-10-07] VITALS: Ht 162.6 cm; Wt 116.0 kg
[2020-10-07 20:34] LABS: HEMATOCRIT 30.8 % (37.0-47.0); HEMOGLOBIN 9.8 g/dl (12.0-16.0); IMMATURE GRANULOCYTES 0.5 % (0.0-5.0); MEAN CELL VOLUME 96.3 fL CALC (80.0-100.0); MEAN CORPUSCULAR HGB 30.6 pG CALC (26.0-32.0); MEAN CORPUSCULAR HGB CONC 31.8 g/dL CAL (32.0-36.0); NEUT# 2.43 thou/uL (2.00-7.15); RED BLOOD COUNT 3.2 mill/uL (4.20-5.60); RED CELL DISTRI WIDTH 15.1 % (11.5-15.5)
[2020-10-07 20:55] LABS: ALBUMIN 3.4 g/dL (3.2-5.0); ALKALINE PHOSPHATASE 128 u/l (38-126); AMYLASE 57 u/l (30-110); ANION GAP 10 (6-22 (CALC)); BILIRUBIN, TOTAL 0.7 mg/dL (0.0-1.4); BUN 67 mg/dL (8-23); BUN/CREATININE RATIO 27 (12-20 (CALC)); CARBON DIOXIDE 31 mmol/l (22-30); CHLORIDE 95 mmol/l (95-108); CREATININE 2.5 mg/dL (0.5-1.0); ETHYL ALCOHOL 0 mg/dl (0-30); GFR 19 ML/MIN (>=60 (CALC)); GFR FOR AFR.AMER. 23 ML/MIN (>=60 (CALC)); LIPASE 138 u/l (23-300); POTASSIUM 3.6 mmol/l (3.5-5.1); SGOT/AST 39 u/l (9-36); SODIUM 132 mmol/l (137-146); TOTAL PROTEIN 6.6 g/dL (6.3-8.2)
[2020-10-07 21:04] LABS: ACT PARTIAL THROMBO TIME 23.9 SECONDS (20.0-32.5)
[2020-10-08 00:40] VITALS: BP 116/69
[2020-10-08 04:00] VITALS: BP 119/68
[2020-10-08 07:32] VITALS: BP 97/59
[2020-10-08 10:30] VITALS: BP 113/69
[2020-10-08] MEDS ORDERED: LEXAPRO20 MG PO (13:56)
[2020-10-08] MEDS ORDERED: LEVOTHYROXIN150 MC1 PO (14:01)
[2020-10-08] MEDS ORDERED: KRISTALOSE10 GM PO ×2 (14:02→14:27)
[2020-10-08 14:55] VITALS: BP 105/64
== END 2020-10-08 16:30 | disposition home health service (06) ==
LOC: ED 19:45 → ED-I 23:10 → ED 23:27 → MS2 23:28
PROVIDERS: ADMIT Internal Medicine; ATTEND Internal Medicine
PROC: 0W9G3ZZ Drainage of Peritoneal Cavity, Percutaneous Approach (ICD-10-PCS; principal; 2020-10-08)
PROC: BW40ZZZ Ultrasonography of Abdomen (ICD-10-PCS; 2020-10-08)
DX: K74.60 Unspecified cirrhosis of liver (principal); R18.8 Other ascites; E72.20 Disorder of urea cycle metabolism, unspecified; N17.9 Acute kidney failure, unspecified; K72.90 Hepatic failure, unspecified without coma; I12.9 Hypertensive chronic kidney disease with stage 1 through stage 4 chronic kidney disease, or unspecified chronic kidney disease; E11.22 Type 2 diabetes mellitus with diabetic chronic kidney disease; N18.30 Chronic kidney disease, stage 3 unspecified; I25.10 Atherosclerotic heart disease of native coronary artery without angina pectoris; E03.9 Hypothyroidism, unspecified; E11.40 Type 2 diabetes mellitus with diabetic neuropathy, unspecified; E66.01 Morbid (severe) obesity due to excess calories; I69.954 Hemiplegia and hemiparesis following unspecified cerebrovascular disease affecting left non-dominant side; Z68.41 Body mass index [BMI] 40.0-44.9, adult; Z87.891 Personal history of nicotine dependence; Z79.4 Long term (current) use of insulin; Z20.822 Contact with and (suspected) exposure to COVID-19; Z12.31 Encounter for screening mammogram for malignant neoplasm of breast; N95.1 Menopausal and female climacteric states
CPT/HCPCS: G0378; P9047

== ENCOUNTER 2020-10-28 03:44 | Observation (INO) | payer MEDICARE ==
[~2020-10-28] VITALS: Ht 162.6 cm; Wt 110.0 kg
[~2020-10-28 03:44] MED LIST changes: +KRISTALOSE10 GM PO; +LEVOTHYROXIN150 MC1 PO; +LEXAPRO20 MG PO
--- NOTE | 2020-10-28 03:48 | NUR ---
BY EMS TO ROOM. DRESSING ON LLE. AWAKE.
[2020-10-28 04:29] LABS: HEMATOCRIT 32.3 % (37.0-47.0); HEMOGLOBIN 10.4 g/dl (12.0-16.0); IMMATURE GRANULOCYTES 0.4 % (0.0-5.0); MEAN CELL VOLUME 96.1 fL CALC (80.0-100.0); MEAN CORPUSCULAR HGB CONC 32.2 g/dL CAL (32.0-36.0); NEUT# 10.23 thou/uL (2.00-7.15); RED BLOOD COUNT 3.36 mill/uL (4.20-5.60); RED CELL DISTRI WIDTH 15.2 % (11.5-15.5)
--- NOTE | 2020-10-28 04:33 | NUR ---
TOLERATED CATH WELL.
[2020-10-28 04:45] LABS: PROTHROMBIN TIME 10.6 SECONDS (9.0-12.5)
[2020-10-28 04:45] LABS: URINE BILIRUBIN - DIPSTICK NEGATIVE (NEGATIVE); URINE BLOOD DIPSTICK NEGATIVE (NEGATIVE); URINE COLOR YELLOW; URINE GLUCOSE - DIPSTICK NEGATIVE (NEGATIVE); URINE KETONE NEGATIVE (NEGATIVE); URINE LEUK ESTERASE NEGATIVE (NEGATIVE); URINE PH 5.5 (4.5-8.0); URINE PROTEIN - DIPSTICK NEGATIVE (NEG-TRACE); URINE SPECIFIC GRAVITY 1.025; URINE UROBILINOGEN - DIPSTICK 0.2 E.U./dL (0.2)
[2020-10-28 04:48] LABS: ALKALINE PHOSPHATASE 107 u/l (38-126); ANION GAP 12 (6-22 (CALC)); BILIRUBIN, TOTAL 0.9 mg/dL (0.0-1.4); BUN 73 mg/dL (8-23); BUN/CREATININE RATIO 29 (12-20 (CALC)); CARBON DIOXIDE 25 mmol/l (22-30); CHLORIDE 96 mmol/l (95-108); CREATININE 2.6 mg/dL (0.5-1.0); GFR 18 ML/MIN (>=60 (CALC)); GFR FOR AFR.AMER. 22 ML/MIN (>=60 (CALC)); LIPASE 45 u/l (23-300); MAGNESIUM 2.8 mg/dL (1.6-2.3); SGOT/AST 54 u/l (9-36); SODIUM 128 mmol/l (137-146); TOTAL PROTEIN 6.4 g/dL (6.3-8.2)
[2020-10-28 04:49] LABS: POTASSIUM 4.9 mmol/l (3.5-5.1)
[2020-10-28 04:51] LABS: URINE NITRITE - DIPSTICK NEGATIVE (Negative)
[2020-10-28 05:12] LABS: MYOGLOBIN 1604 ng/mL (0 - 62)
[2020-10-28 05:22] LABS: TSH, 3RD GENERATION > 100.00 uIU/mL (0.47 - 4.68)
--- NOTE | 2020-10-28 05:30 | NUR ---
NO SIGNIFICANT CHANGE IN EXAM.
--- NOTE | 2020-10-28 06:30 | NUR ---
RESTING QUIETLY WAITING TO GO TO ROOM.
--- NOTE | 2020-10-28 06:49 | NUR ---
PT ARRIVED TO [facility] VIA STRETCHER ACCOMPANIED BY ED NURSE SARAH;PT WAS TRANSFERRED OVER TO BED WITH MAXIMUM 2-PERSON ASSISTANCE;VS AND ASSESSMENT WERE COMPLETED;ALLERGY AND FALL RISK ARM BANDS WERE PLACED ON PT;PT ORIENTED TO ROOM AND CALL LIGHT;PT INVENTORY SHEET WAS COMPLETED;PT UNABLE TO SIGN DUE TO AMS;PT PHYSICAL ASSESSMENT WAS COMPLETED;HEART SOUNDS ARE REGULAR IN RATE AND RHYTHM;LUNG SOUNDS ARE CLEAR;RESPIRATIONS ARE EVEN AND UNLABORED ON RA;PT HAS A PUREWICK IN PLACE AT THIS TIME;#20G IV IN LAC IS SL, PATENT AND FREE OF COMPLICATIONS AT THIS TIME;PT HAS 3+EDEMA ALONG WITH WARMTH AND REDNESS PRESENT IN LOWER LEGS AND FEET BILATERALLY;PT HAS A HEALING WOUND ON LLL;PT ALSO HAS NUMEROUS AREAS OF ECCHYMOSIS PRESENT ON BOTH ARM BILATERALLY;ABDOMEN IS SOFT AND DISTENDED;PT IS UNABLE TO ANSWER MOST OF THE ASSESSMENT QUESTIONS AND KEEPS STATING,"IT JUST HURTS";PT IS UNABLE TO PROVIDE A NUMERIC PAIN LEVEL BUT DOES STATE THAT THE PAIN IS LOCATED IN HER ABDOMEN;SAFETY PRECAUTIONS IN PLACE;BED ALARM ON DUE TO AMS;CALL LIGHT WITHIN REACH;WILL CONTINUE TO MONITOR.
[2020-10-28] MEDS ORDERED: ALDACTONE25 MG PO (07:03)
[2020-10-28] MEDS ORDERED: GENERLAC10 GM/15 M PO (07:03)
[2020-10-28] MEDS ORDERED: LASIX 40 MG TAB40 MG PO (07:03)
[2020-10-28] MEDS ORDERED: MIDODRINE10 MG PO (07:04)
[2020-10-28] MEDS ORDERED: FAMOTIDINE20 M1 PO (07:05)
[2020-10-28 07:13] VITALS: BP 129/54
--- NOTE | 2020-10-28 13:15 | NUR ---
PT IS RESTING IN BED WITH SON AT BEDSIDE ALONG WITH DION LEAL DISCUSSING POC;SAFETY PRECAUTIONS IN PLACE;CALL LIGHT WITHIN REACH;BED IN LOWEST POSITION;WILL CONTINUE TO MONITOR
[2020-10-28 14:19] VITALS: BP 109/49
--- NOTE | 2020-10-28 16:00 | NUR ---
PT WAS FOUND SLEEPING IN BED;PT WILL AROUSE TO VERBAL STIMULI BUT IS VERY DROWSY AND IS HAVING A HARD TIME STAYING AWAKE;ELVIS ASHLEY NOTIFIED AND AWARE;#20G IV IN [facility] IS RUNNING NS@50ML/HR;IV SITE IS FREE OF COMPLICATIONS AT THIS TIME;SAFETY PRECAUTIONS IN PLACE;CALL LIGHT WITHIN REACH;BED ALARM ON;BED IN LOWEST POSITION;WILL CONTINUE TO MONITOR.
[2020-10-28 19:08] VITALS: BP 97/52
--- NOTE | 2020-10-28 19:42 | NUR ---
PHYSICAL ASSESMENT COMPLETE. PT CURRENTLY DENIES PAIN OR DISCOMFORT. SCHEDULED MEDICATIONS AND PRN MEDICATION ADMINISTERED, SEE E-MAR. PT DENIES ANY NEEDS AT THIS TIME. PLAN OF CARE REVIEWED, PT DENIES QUESTIONS, VERBALIZES UNDERSTANDING. ITEMS WITHIN REACH, BED LOCKED IN LOW POSITION W/ BEDRAILS UP X2. CALL BOLANOS WITHIN REACH, AGREES TO CALL PRN.
--- NOTE | 2020-10-29 00:40 | NUR ---
PT LAYING IN BED WITH EYES CLOSED, APPEARS TO BE SLEEPING, APPEARS COMFORTABLE AND IN NO DISTRESS. RESPIRATIONS REGULAR AND UNLABORED. ITEMS REMAIN WITHIN REACH, CALL BOLANOS REMAINS WITHIN REACH. BED REMAINS LOCKED AND IN LOW POSITION WITH BEDRAILS UP X2. WILL CONTINUE TO MONITOR.
[2020-10-29 04:00] VITALS: BP 98/56
--- NOTE | 2020-10-29 04:20 | NUR ---
PT RESTING IN BED, NO SIGNS OF DISTRESS NOTED, RESP EVEN AND UNLABORED. PT VOICES NO NEEDS OR COMPLAINTS AT THIS TIME. CALL LIGHT IN REACH, CONTINUE TO MONITOR.
[2020-10-29 05:12] LABS: HEMATOCRIT 27.9 % (37.0-47.0); HEMOGLOBIN 9.2 g/dl (12.0-16.0); MEAN CELL VOLUME 95.2 fL CALC (80.0-100.0); MEAN CORPUSCULAR HGB 31.4 pG CALC (26.0-32.0); RED BLOOD COUNT 2.93 mill/uL (4.20-5.60); RED CELL DISTRI WIDTH 14.9 % (11.5-15.5)
[2020-10-29 05:28] LABS: BILIRUBIN, TOTAL 0.8 mg/dL (0.0-1.4); MAGNESIUM 2.4 mg/dL (1.6-2.3)
[2020-10-29 05:30] LABS: ALBUMIN 2.2 g/dL (3.2-5.0); TOTAL PROTEIN 4.9 g/dL (6.3-8.2)
--- NOTE | 2020-10-29 07:00 | NUR ---
PT REPORT RECEIVED FROM NIGHT NURSEENMA RN
[2020-10-29 07:39] VITALS: BP 100/63
--- NOTE | 2020-10-29 08:00 | NUR ---
PT WAS FOUND RESTING IN BED IN SUPINE POSITION;PT IS ALERT AND ORIENTED TO PERSON AND PLACE;VS AND ASSESSMENT WERE COMPLETED;HEART SOUNDS ARE REGULAR IN RATE AND RHYTHM;LUNG SOUNDS ARE CLEAR;RESPIRATIONS ARE EVEN AND UNLABORED ON RA;PUREWICK IN PLACE DRAINING CLEAR YELLOW URINE;#20G IV IN LAC IS RUNNING NS@50ML/HR;IV SITE IS FREE OF COMPLICATIONS AT THIS TIME;SAFETY PRECAUTIONS IN PLACE;BED ALARM ON;CALL LIGHT WITHIN REACH;BED IN LOWEST POSITION;PT INSTRUCTED TO CALL FOR ASSISTANCE;WILL CONTINUE TO MONITOR.
--- NOTE | 2020-10-29 09:10 | NUR ---
AND DION SORIANO AT BEDSIDE DISCUSSING POC.
--- NOTE | 2020-10-29 09:45 | NUR ---
PHYSICAL THERAPY AT BEDSIDE WORKING WITH PT
--- NOTE | 2020-10-29 12:00 | NUR ---
PT WAS FOUND SLEEPING IN BED;PT AROUSED TO VERBAL STIMULI;PUREWICK IN PLACE DRAINING CLEAR YELLOW URINE;SAFETY PRECAUTIONS IN PLACE;BED ALARM ON;CALL LIGHT WITHIN REACH;BED IN LOWEST POSITION;WILL CONTINUE TO MONITOR.
[2020-10-29 15:13] VITALS: BP 96/53
--- NOTE | 2020-10-29 16:00 | NUR ---
PT WAS FOUND RESTING IN BED;PT GIVEN AN ADDITIONAL PILLOW TO ELEVATE HER LEGS TO HELP RELIEVE SOME OF THE PRESSURE AND SWELLING;#20G IV IN LAC IS RUNNING NS @50ML/HR;IV SITE IS FREE OF COMPLICATIONS AT THIS TIME;SAFETY PRECAUTIONS IN PLACE;PUREWICK IN PLACE DRAINING CLEAR YELLOW URINE;BED ALARM ON;CALL LIGHT WITHIN REACH;BED ALARM ON;PT INSTRUCTED TO CALL FOR ASSISTANCE;WILL CONTINUE TO MONITOR.
[2020-10-29 19:00] VITALS: BP 93/50
[2020-10-30 04:00] VITALS: BP 81/49
[2020-10-30 06:18] LABS: HEMATOCRIT 28.5 % (37.0-47.0); HEMOGLOBIN 9.1 g/dl (12.0-16.0); MEAN CORPUSCULAR HGB 30.3 pG CALC (26.0-32.0); MEAN CORPUSCULAR HGB CONC 31.9 g/dL CAL (32.0-36.0); RED CELL DISTRI WIDTH 14.7 % (11.5-15.5)
[2020-10-30 06:38] LABS: CREATININE 1.9 mg/dL (0.5-1.0); POTASSIUM 2.8 mmol/l (3.5-5.1)
[2020-10-30 06:39] LABS: POTASSIUM 2.8 mmol/l (3.5-5.1)
[2020-10-30 07:35] VITALS: BP 93/48
--- NOTE | 2020-10-30 07:35 | NUR ---
ASSESSMNET IS COMPLETED; IV SITE ISF REE FROM REDNESS OR EDEMA. HR IS REG,PULSES ARE STRONG X4, ABD IS SOFT WITH ACTIVE BS. BREATH SOUNDS ARE CLEAR,BILATERALLY, NO C/O SOB. PUREWICK IN PLACE. LEGS HAVE +2 PITTING EDEMA. NOTED. CONTINUE TO OSBERVE AND MONITOR.
--- NOTE | 2020-10-30 12:00 | NUR ---
PT IS RELAXING IN BED WITH NO DISTRESS NOTED. IV SITE IS FREE FROM REDNESS OR EDEMA.
--- NOTE | 2020-10-30 14:04 | NUR ---
Patient did B LE AAROM exercises in supine position doing hip flexion, hip adduction and abduction, hamstring curls, knee extension, hip external and interanl rotation, and ankle ROM exercises for 10 reps x 2 sets with constant tactile and occasional verbal cuing to help decrease trick movements and fall risks. Patient also participated with log rolling bed mobility ADLs with max A x 1 to 2 with patient exhibiting sluggish pattern of movement with assuming static and dynamic sitting ADLs (1 to 2 reps with constant verbal and tactile cuing.
[2020-10-30 14:56] VITALS: BP 91/55
--- NOTE | 2020-10-30 16:00 | NUR ---
PT IS RELAXING AND WAS VISITING WITH FAMILY, CONTINUE TO OSBERVE AND MONITOR.
[2020-10-30 19:00] VITALS: BP 92/57
--- NOTE | 2020-10-30 19:05 | NUR ---
REPORT RECEIVED FROM Mariposa TOWNSEND LPN, CARE OF PT ASSUMED AT THIS TIME.
--- NOTE | 2020-10-30 20:15 | NUR ---
PHYSICAL ASSESMENT COMPLETED. PT LAYING IN BED, APPEARS COMFORTABLE AND IN NO DISTRESS. RESPIRATIONS REGULAR AND UNLABORED. LUNGS CLEAR B/L WITH DIMINISHED BASES. ABD DISTENDED AND SOFT. +1 PITTING EDEMA TO B/L FEET. PLAN OF CARE REVIEWED, PT VERBALIZES UNDERSTANDING. PT REPORTS LEFT SIDED ABD PAIN "FROM ALL THE FLUID", REPORTS CHRONIC IN NATURE. REPORTS SHE TAKES HYDROCODONE FROM A PAIN MANAGMENT PROVIDER AT HOME. HOWEVER PT IS REQUESTIONG REPEAT MOTRIN DOSE THAT "SHE GOT LAST NIGHT" THIS PROVIDED RELIEF. WILL REQUEST ORDER FROM ON-CALL PROIVDER. DENIES ANY FURTHER NEEDS AT THIS TIME. CALL BOLANOS WITHIN REACH, AGREES TO CALL PRN.
--- NOTE | 2020-10-30 20:45 | NUR ---
ORDER FOR KAT X1 NOW RECEIVED FROM DR. MOSELEY FOR PT'S C/O LEFT SIDED PAIN "FROM ALL THE FLUID". SEE E-MAR.
--- NOTE | 2020-10-30 21:00 | NUR ---
SEE E-MAR FOR MEDICATION ADMINISTRATION.
--- NOTE | 2020-10-31 00:15 | NUR ---
PT APPEARS TO BE SLEEPING COMFORTABLY, LAYING IN BED WITH EYES CLOSED, RESPIRATIONS REGULAR AND UNLABORED, NO APPARENT DISTRESS. CALL BOLANOS REMAINS WITHIN REACH.
[2020-10-31 04:00] VITALS: BP 102/61
--- NOTE | 2020-10-31 04:15 | NUR ---
Sima YU HEAD OF HOUSEKEEPING AT BEDSIDE TO COLLECT AM BLOOD WORK.
[2020-10-31 05:38] LABS: HEMATOCRIT 31.5 % (37.0-47.0); HEMOGLOBIN 10.1 g/dl (12.0-16.0); IMMATURE GRANULOCYTES 0.4 % (0.0-5.0); MEAN CELL VOLUME 94.9 fL CALC (80.0-100.0); MEAN CORPUSCULAR HGB 30.4 pG CALC (26.0-32.0); MEAN CORPUSCULAR HGB CONC 32.1 g/dL CAL (32.0-36.0); NEUT# 5.62 thou/uL (2.00-7.15); RED BLOOD COUNT 3.32 mill/uL (4.20-5.60); RED CELL DISTRI WIDTH 14.5 % (11.5-15.5)
[2020-10-31 05:51] LABS: ALBUMIN 2.2 g/dL (3.2-5.0); BILIRUBIN, TOTAL 0.8 mg/dL (0.0-1.4); POTASSIUM 3.3 mmol/l (3.5-5.1)
[2020-10-31 07:35] VITALS: BP 103/59
--- NOTE | 2020-10-31 09:00 | NUR ---
PT APPEARS WEAK, SWELLING TO BLE. LUNGS CLEAR. PT ASSISTED TO CHAIR BY THERAPIST.
--- NOTE | 2020-10-31 13:00 | NUR ---
PT ASSISTED BACK TO BED THIS AFTERNOON, SEEN WEAK, UNABLE TO STEP WITH LEGS. EVENTUALLY SETTLED BACK INTO BED, NO DISTRESS.
--- NOTE | 2020-10-31 14:07 | NUR ---
Patient did AAROM exercises for B LE in seated position doing knee extension, hamstring curls, hip flexion, hip adduction, hip abduction, gluteal squeezes, and ankle ROM exercises for 10 reps x 3 sets with constant tactile cuing and occasinal verbal cuing to facilitate proper limb positioning while reinforcing efficiency to participate with functional weight bearing ADLs. Patient did log rolling bed mobility and sit to stand push off technique with max a x 2 (patient did 2 reps) with constant tactile and verbal cuing to decrease trick movements and fall risks.
[2020-10-31 15:54] VITALS: BP 109/62
--- NOTE | 2020-10-31 16:59 | NUR ---
PT REMAINS AT REST IN THE BED WITHOUT COMPLAINT.
[2020-10-31 19:00] VITALS: BP 99/60
--- NOTE | 2020-10-31 19:00 | NUR ---
REPORT FROM NOA GRIFFIN. ASSUMED PT CARE.
--- NOTE | 2020-11-01 00:27 | NUR ---
PT RESTING IN BED WITH EYES CLOSED. NO APPARENT DISTRESS NOTED. RESPIRATIONS EVEN AND UNLABORED. IVF INFUSING WITHOUT DIFFICULTY. CALL LIGHT WITHIN REACH. WILL CONTINUE TO MONITOR.
[2020-11-01 04:00] VITALS: BP 102/65
[2020-11-01 08:10] VITALS: BP 121/59
--- NOTE | 2020-11-01 08:10 | NUR ---
ASSESSMENT IS COMPLETED: IV SITE IS FREE FROM REDNESS OR EDEMA. HR IS REG,PULSES ARE STRONG X4, ABD IS SOFT/DISTENDED WITH ACTIVE BS. BREATH SOUNDS ARE CLEAR, BILATERALLY. +2 PITTING EDEMA NOTED ON BILAT FEET. PUREWICK IN PLACE.
--- NOTE | 2020-11-01 12:00 | NUR ---
pt is relaxing in bed with no distress noted. iv site is free fromr edness or edema.
--- NOTE | 2020-11-01 14:21 | NUR ---
Patient did log rolling bed mobility ADLs with max A x 1-2 with constant verbal and tactile cuing to decrease trick movement and fall risks. Patient also did B LE seated exercise protocol with costant verbal and occasional tactile cuing to help improve proper limb positioning with each exercise routine and decrease trick movements: hip flexion, hip adduction and abduction, knee extension, hamstring curls, gluteal squeezes, and ankle ROM for 10 reps x 3 sets with muscle guarding moving the R LE.
[2020-11-01 16:00] VITALS: BP 120/72
--- NOTE | 2020-11-01 16:00 | NUR ---
pt remains relaxing in bed with no distress noted.
[2020-11-01 20:00] VITALS: BP 107/60
--- NOTE | 2020-11-01 20:11 | NUR ---
PHYSICAL ASSESMENT COMPLETE. PT CURRENTLY DENIES PAIN OR DISCOMFORT. SCHEDULED MEDICATIONS AND PRN MEDICATION ADMINISTERED, SEE E-MAR. PPT DENIES ANY NEEDS AT THIS TIME. PLAN OF CARE REVIEWED, PT DENIES QUESTIONS, VERBALIZES UNDERSTANDING. ITEMS WITHIN REACH, BED LOCKED IN LOW POSITION W/ BEDRAILS UP X2. CALL BOLANOS WITHIN REACH, AGREES TO CALL PRN.
--- NOTE | 2020-11-01 23:41 | NUR ---
PT CLEANED OF INCONTIENT STOOL AND URINE. BARRIER CREAM APPLIED TO PERINEAL AREA. CLEAN PURWICK PLACED. PT AWAKE AND WATCHING TV. PTS BELONGS AND CALL BOLANOS WITHIN REACH. WILL CONTINUE TO MONITOR.
[2020-11-02 04:00] VITALS: BP 99/61
[2020-11-02 04:43] LABS: HEMATOCRIT 29.2 % (37.0-47.0); HEMOGLOBIN 9.4 g/dl (12.0-16.0); MEAN CELL VOLUME 93.6 fL CALC (80.0-100.0); MEAN CORPUSCULAR HGB 30.1 pG CALC (26.0-32.0); MEAN CORPUSCULAR HGB CONC 32.2 g/dL CAL (32.0-36.0); RED BLOOD COUNT 3.12 mill/uL (4.20-5.60); RED CELL DISTRI WIDTH 14.4 % (11.5-15.5)
[2020-11-02 04:52] LABS: CREATININE 1.8 mg/dL (0.5-1.0); POTASSIUM 3.1 mmol/l (3.5-5.1)
--- NOTE | 2020-11-02 07:00 | NUR ---
PT REPORT RECEIVED FROM NIGHT NURSEENMA.
[2020-11-02 07:33] VITALS: BP 95/56
--- NOTE | 2020-11-02 08:00 | NUR ---
PT WAS FOUND RESTING IN BED IN SEMI-FOWLERS POSITION;PT IS A&OX3;VS AND ASSESSMENT WERE COMPLETED;HEART SOUNDS ARE REGULAR IN RATE AND RHYTHM;LUNG SOUNDS ARE CLEAR;RESPIRATIONS ARE EVEN AND UNLABORED ON RA;PUREWICK IN PLACE DRAINING CLOUDY YELLOW URINE;#22G IV IN LAC IS RUNNING NS@10ML/HR KVO;IV SITE IS FREE OF COMPLICATIONS AT THIS TIME;PT HAS SOME REDNESS AND 4+PITTING EDEMA PRESENT IN LOWER EXTREMETIES BILATERALLY;SAFETY PRECAUTIONS IN PLACE;BED ALARM ON;CALL LIGHT WTIHIN REACH;BED IN LOWEST POSITION;PT ASKED TO CALL FOR ANY NEEDS OR CONCERNS;WILL CONTINUE TO MONITOR.
--- NOTE | 2020-11-02 09:30 | NUR ---
AND DION LEAL AT BEDSIDE DISCUSSING POC WITH PT.
--- NOTE | 2020-11-02 09:50 | NUR ---
EMPTIED 600CC URINE COLLECTED FROM PUREWICK CATHETER;URINE IS YELLOW AND CLOUDY;HEEL PROTECTORS ALSO PLACED TO HELP OFFSET PRESSURE AND PROVIDE COMFORT TO PT;
--- NOTE | 2020-11-02 11:35 | NUR ---
PHYSICAL THERAPY AT BEDSIDE WORKING WITH PT
--- NOTE | 2020-11-02 12:00 | NUR ---
PT WAS FOUND RESTING IN BED TALKING ON HER CELL PHONE;PT IS REPORTING NO PAIN AT THIS TIME;PUREWICK IN PLACE DRAINING CLOUDY YELLOW URINE;SAFETY PRECAUTIONS IN PLACE;CALL LIGHT WITHIN REACH;BED IN LOWEST POSITION WITH ALARM ON;WILL CONTINUE TO MONITOR.
--- NOTE | 2020-11-02 12:16 | NUR ---
Patient acting sluggish today - states that she didn't sleep well last night due to upset stomach, struggled to participate with ROM exercises and transfer ADLs, needed max A x 1 to 2 to initiate log rolling bed mobility ADLs (attempted 3 reps on each side with max A x 2). Patient participated with AAROM of Eliza WHEELER in supine position: SLR, hip adduction, hip abduction, hip and knee flexion and extension, gluteal squeezes, and ankle AAROM for 10 reps x 2 sets with 3 to 4 breaks in between exercise protocol due to fatigue (needed verbal and tactile cuing to help facilitate proper limb positioning and decrease trick movements).
[2020-11-02 15:20] VITALS: BP 97/56
--- NOTE | 2020-11-02 16:04 | NUR ---
PT WAS FOUND RESTING IN BED;PT HAS HER GRANDSON VISITING HER AT THIS TIME;PT IS REPORTING NO PAIN CURRENTLY;PUREWICK IS IN PLACE DRAINING CLOUDY YELLOW URINE;#22G IV IN LAC IS SL, PATENT AND FREE OF COMPLICATIONS;SAFETY PRECAUTIONS IN PLACE;CALL LIGHT WITHIN REACH;BED IN LOWEST POSITION;WILL CONTINUE TO MONITOR.
[2020-11-02 19:00] VITALS: BP 98/62
[2020-11-03 04:00] VITALS: BP 104/62
[2020-11-03 05:11] LABS: HEMATOCRIT 30.1 % (37.0-47.0); HEMOGLOBIN 9.9 g/dl (12.0-16.0); MEAN CELL VOLUME 93.8 fL CALC (80.0-100.0); MEAN CORPUSCULAR HGB 30.8 pG CALC (26.0-32.0); MEAN CORPUSCULAR HGB CONC 32.9 g/dL CAL (32.0-36.0); RED BLOOD COUNT 3.21 mill/uL (4.20-5.60); RED CELL DISTRI WIDTH 14.3 % (11.5-15.5)
[2020-11-03 05:40] LABS: CREATININE 1.8 mg/dL (0.5-1.0); POTASSIUM 3.3 mmol/l (3.5-5.1)
--- NOTE | 2020-11-03 07:00 | NUR ---
PT REPORT RECEIVED FROM NIGHT NURSEENMA
--- NOTE | 2020-11-03 08:00 | NUR ---
PT WAS FOUND RESTING IN BED IN SEMI-FOWLERS POSITION;PT IS A&OX3;VS AND ASSESSMENT WERE COMPLETED;PT HAS NO REPORTS OF PAIN AT THIS TIME;HEART SOUNDS ARE REGULAR IN RATE AND RHYTHM;LUNG SOUNDS ARE CLEAR;RESPIRATIONS ARE EVEN AND UNLABORED ON RA;PUREWICK IS IN PLACE DRAINING CLOUDY YELLOW URINE;PT HAS EDEMA PRESENT IN LOWER LEGS BILATERALLY;PT LEGS ARE ELEVATED ON A PILLOW WITH HEEL PROTECTORS IN PLACE TO HELP OFFSET PRESSURE;#22G IV IN LAC IS SL, PATENT AND FREE OF COMPLICATIONS AT THIS TIME;SAFETY PRECAUTIONS IN PLACE;CALL LIGHT WITHIN REACH;WILL CONTINUE TO MONITOR.
--- NOTE | 2020-11-03 09:30 | NUR ---
AND DION LEAL AT BEDSIDE DISCUSSING POC WITH PT
--- NOTE | 2020-11-03 12:00 | NUR ---
PT WAS FOUND RESTING IN BED EATING LUNCH;PT HAS NO REPORTS OF PAIN OR NEEDS AT THIS TIME;SAFETY PRECAUTIONS IN PLACE;CALL LIGHT WITHIN REACH;WILL CONTINUE TO MONITOR.
[2020-11-03 14:58] VITALS: BP 108/60
--- NOTE | 2020-11-03 16:00 | NUR ---
PT WAS FOUND RESTING IN BED;PUREWICK IN PLACE DRAINING CLOUDY YELLOW URINE;#22G IV IN LAC IS SL, PATENT AND FREE OF COMPLICATIONS AT THIS TIME;SAFETY PRECAUTIONS IN PLACE;CALL LIGHT WITHIN REACH;WILL CONTINUE TO MONITOR,.
[2020-11-03 19:00] VITALS: BP 107/64
--- NOTE | 2020-11-03 19:24 | NUR ---
RECEIVED REPORT FROM NURSE ARRIAZA PATIENT RESTING IN BED WATCHING TV BREATHING UNLABORED, HOOKED TO PUREWICK DRAINING JOSE COLORED URINE.
--- NOTE | 2020-11-03 20:00 | NUR ---
PATIENT RESTING IN BED,ALERT ORIENTED WITH SALINE LOCK ON LAC G22 PATENT FLUSHES WELL, ABDOMEN DISTENDED ACTIVE BOWEL SOUNDS, BREATHING UNLABORED, LBM 5/16, BLOOD SUGAR 187, DENIES PAIN AT THIS TIME, NOTED TO HAVE EDEMA ON BLE, HEELS OFFLOADED, WITH PUREWICK DRAINING JOSE COLORED URINE, CALL LIGHT AT REACH.
--- NOTE | 2020-11-03 23:06 | NUR ---
PATIENT TURNED AND REPOSITIONED AT THIS TIME, BM LOOSE SMALL PERINEAL CARE DONE, NEW PUREWICK IN PLACE.
[2020-11-04 03:49] VITALS: BP 102/60
--- NOTE | 2020-11-04 04:04 | NUR ---
PATIENT RESTING IN BED, BREATHING EVEN UNLABORED, NO DISCOMFORTS NOTED AT THIS TIME, CALL LIGHT AT REACH.
[2020-11-04 04:30] LABS: HEMATOCRIT 31.8 % (37.0-47.0); HEMOGLOBIN 10.2 g/dl (12.0-16.0); MEAN CELL VOLUME 94.6 fL CALC (80.0-100.0); MEAN CORPUSCULAR HGB 30.4 pG CALC (26.0-32.0); MEAN CORPUSCULAR HGB CONC 32.1 g/dL CAL (32.0-36.0); RED BLOOD COUNT 3.36 mill/uL (4.20-5.60); RED CELL DISTRI WIDTH 14.3 % (11.5-15.5)
[2020-11-04 04:38] LABS: CREATININE 1.9 mg/dL (0.5-1.0); MAGNESIUM 2.1 mg/dL (1.6-2.3); POTASSIUM 3.2 mmol/l (3.5-5.1)
[2020-11-04 07:50] VITALS: BP 93/48
--- NOTE | 2020-11-04 07:50 | NUR ---
PT RESTING IN SEMI FOWLERS POSITION. PT IS A/O X3. ASSESSMENT AND VITALS COMPLETED. BP 93/48, HR 77, O2 97% ON ROOM AIR. RESPIRATIONS ARE EVEN AND UNLABORED WITH NO DISTRESS NOTED. LUNG SOUNDS ARE CLEAR. HEART RHYTHM IS NORMAL. BOWEL SOUNDS ARE ACTIVE.ABD TENDERNESS AND DISTENDED NOTED. RADIAL PULSES STRONG. PEDAL PULSES WEAK. #22G LAC FLUSHED, SITE APPEARS HEALTHY AND PATENT. DRESSING TO LLE CDI. 2+ EDEMA NOTED TO BLE. PT COMPLAINS OF 7/10 PAIN IN ABD, PT MEDICATED PER EMAR. PURE WHICK IN PLACE. PT DENIES OF ANY OTHER NEEDS OR DISCOMFORTS. ALL SAFETY PRECAUTIONS ARE IN PLACE WITH CALL LIGHT IN REACH. WILL CONTINUE TO MONITOR.
--- NOTE | 2020-11-04 10:55 | NUR ---
DR DARDEN AT BEDSIDE
--- NOTE | 2020-11-04 12:02 | NUR ---
PT RESTING IN SEMI FOWLERS POSITION. PT REMAINS A/O X3. REPSIRATIONS ARE EVEN AND UNLABORED. PT DENIES OF ANY PAINS OR DISCOMFORTS. PUREWHICK REMAINS IN PLACE. ALL SAFTEY PRECAUTIONS ARE IN PLACE WITH CALL LIGHT IN REACH. WILL CONTINUE TO MONITOR.
--- NOTE | 2020-11-04 13:07 | NUR ---
RECIEVED REPORT FROM ER
--- NOTE | 2020-11-04 13:19 | NUR ---
Patient worked on log rolling bed mobility ADLs with max A x 1-2 assist, moving side to side with 2 to 3 reps with constant verbal and tactile cuing to help decrease fall risks. Patient did B LIAM OVALLES exercises in seated position doing hip flexion, hip adduction and abduction, hamstring curls, knee extension, gluteal squeezes, and ankle for 10 reps x 2 to 3 sets with occasional verbal and constant tactile cuing to help decrease trick movement and fall risks.
--- NOTE | 2020-11-04 15:22 | NUR ---
COMPLETED BED BATH GIVEN TO PT, ASSISTED BY CAT GARCIAS. PT TOLERATED WELL. NEW PUREWHICK REAPPLIED. PT REQUEST FOR HEEL PROTECTS TO STAY OFF. BLE ELVATED WITH PILLOW X2. REPSIRATIONS ARE EVEN AND UNLABORED. PT DENIES OF ANY NEEDS AT THIS TIME. ALL SAFETY PRECAUTIONS ARE IN PLACE WITH CALL LIGHT IN REACH. WILL CONTINUE TO MONITOR.
[2020-11-04 15:48] VITALS: BP 124/70
--- NOTE | 2020-11-04 16:54 | NUR ---
"I NEED HELP DOING MY TEETH." PATIENT WAS TREATED FOR ADLS AND O.T. HANDED PATIENT HER GROOMING ITEMS TO BRUSH HER DENTURES AND HER HAIR. PATIENT NEEDED VCS TO OPEN TOOTHPASTE AND PLACE ON TOOTHBRUSH, HOWEVER, NEEDED ONLY MIN A TO COMPLETE BRUSHING TEETH WITH O.T. HOLDING EMESIS BASIN. PATIENT INSTRUCTED IN BRUSHING HAIR WHICH PATIENT NEEDED ASSIST REACHING THE BACK OF HER HEAD WHERE SHE HAS A TANGLE. O.T. LEFT CALL LIGHT AT PATIENT'S SIDE FOR SAFETY.
--- NOTE | 2020-11-04 17:00 | NUR ---
PT REFUSED IV CHANGING DUE TO DISCHARGE. #22G IN LAC REMAINS IN PLACE. SITE APPEARS HEALTHY AND PATENT.
[2020-11-04 19:00] VITALS: BP 125/71
--- NOTE | 2020-11-04 20:00 | NUR ---
PATIENT RESTING IN BED AT THIS TIME-AWAKE ALERT AND ORIENTEDX3. PATIENT WITH SEVERE ABD DISTENSION. HX OF CIRRHOSIS AND REPEAT PARACENTESIS' FOR ASCITES. FOR PLACEMENT OF PLEURX DRAIN IN AM IN IR. PATIENT IS PALE. SKIN IS WARM AND DRY. PUREWICK IN PLACE FOR URINE INCONT. PATIENT WITH IV SITE TO LAC INTACT AND APPEARS HEALTHY AT THIS TIME-PATIENT IS REFUSING TO HAVE IT CHANGED TODAY-STATES THAT SHE IS GOING HOME TOMORROW. BLE ELEVATED ON PILLOWS-SWOLLEN. DRESSING TO LEFT RAMIREZ INTACT. ACCU-CHECK TONIGHT IS 231-COVERED WITH HUMALOG 2UNITS SQ PER SS COVERAGE PROTOCOL. HS SNACK PROVIDED. SAFETY PRECAUTIONS REINFORCED. CALL LIGHT IN REACH. WILL CONT TO MONITOR.
--- NOTE | 2020-11-04 22:45 | NUR ---
PATIENT REPOSITIONED IN BED. BLE SWELLING NOTED-2-3+. FEET ELEVATED ON PILLOWS. PULSES ARE PALPABLE. PUREWICK IN PLACE AND DRAINING YELLOW URINE. PATIENT C/O HEADACHE AND ABD PAIN-7/10 ON PAIN SCALE. MEDICATED WITH MOTRIN 400MG PO FOR PAIN. DRESSING TO LEFT RAMIREZ INTACT AND SECURED WITH SURGIFLEX. SAFETY PRECAUTIONS REINFORCED. CALL LILGHT IN REACH. WILL CONT TO MONITOR.
--- NOTE | 2020-11-05 02:37 | NUR ---
PATIENT RESTING IN BED-STATES THAT SHE HAD A BM. PATIENT WITH PUREWICK DRAINING YELLOW U RINE-PURE WICK WILL BE CHANGED. INCONT OF MODERATE AMT OF SOFT BROWN STOOL. PATIENT PROVIDED WITH PERICARE WITH SOAP AND WATER. BERRIER CREAM APPLIED TO BUTTOCKS. NEW PUREWICK APPLIED. LINENS AND PADS WERE CHANGED. PATIENT POSITIONED ON LEFT SIDE FOR COMFORT. SAFETY PRECAUTIONS REINFORCED. CALL LIGHT IN REACH. WILL CONT TO MONITOR.
[2020-11-05 04:00] VITALS: BP 109/68
--- NOTE | 2020-11-05 05:15 | NUR ---
PATIENT APPEARS SLEEPING AT THIS TIME WITH EYES CLOSED. RESPS ARE EVEN AND UNLABORED. PUREWICK IS IN PLACE AND DRAINING YELLOW URINE. SALINE LOCK TO LEFT AC INTACT. CALL LIGHT IN REACH. WILL CONT TO MONITOR.
--- NOTE | 2020-11-05 07:00 | NUR ---
RECIEVED REPORT FROM GABY WHALEN
[2020-11-05 07:43] VITALS: BP 105/63
--- NOTE | 2020-11-05 07:43 | NUR ---
PT RESTING IN SEMI FOWLERS POSITION. PT IS A/O X3. ASSESSMENT AND VITALS COMPLETED. BP IS 105/63, HR 69, O2 97% ON ROOM AIR. REPSIRATIONS ARE EVEN AND UNLABORED WITH NO DISTRESS NOTED. LUNG SOUNDS CLEAR. HEART RHYTHM NORMAL. BOWEL SOUNDS ACTIVE. ABD FIRM AND DISTENDED. TENDERNESS NOTED. RADIAL PULSES STRONF. PEDAL PULSES WEAK. 2+ EDEMA NOTED TO BLE. HEEL PROTECTORS NOTED. DRESSING TO LLE CDI. #22G IN LAC FLUSHED, SITE APPEARS HEALTHY AND PATENT. PT COMPLAINS OF 8/10 PAIN IN ABD, PT TO BE MEDICATED PER EMAR. PURE WHICK IN PLACE, TUBING PATENT.PT DENIES OF ANY NEEDS AT THIS TIME. ALL SAFETY PRECAUTIONS ARE IN PLACE WITH CALL LIGHT IN REACH. WILL CONTINUE TO MONITOR.
--- NOTE | 2020-11-05 09:44 | NUR ---
PT EDUCATED IN D/C INSTRUCTIONS AND POTASSIUM 20 TAKEN DAILY. PT VERBALIZED UNDERSTANDING. #22G IN RAC REMOVED. PT TOLERATED WELL.
[2020-11-05] MEDS ORDERED: KLOR-CON M2020 MEQ PO (09:46)
--- NOTE | 2020-11-05 09:52 | NUR ---
Discharge instructions given. Patient verbalizes understanding of same. Discharged in stable condition via Stretcher to Home with staff. All belongings sent with pt. PT TRANSPORTED TO RADIOLOGY FOR DRAIN PLACEMENT WHERE PT WILL THEN GO HOME. PT D/C IN STABLE CONDITION WITHALL D/C INSTRUCTIONS AND BELONGINGS.
== END 2020-11-05 09:50 | disposition home health service (06) ==
LOC: ED 03:44 → ED-I 06:00 → ED 06:22 → MS2 06:23
PROVIDERS: Family Medicine; Internal Medicine Nephrology; Nurse Practitioner; ADMIT Internal Medicine; ATTEND Internal Medicine
PROC: 0W9G3ZZ Drainage of Peritoneal Cavity, Percutaneous Approach (ICD-10-PCS; principal; 2020-10-28)
PROC: BW40ZZZ Ultrasonography of Abdomen (ICD-10-PCS; 2020-10-28)
DX: K74.60 Unspecified cirrhosis of liver (principal); R18.8 Other ascites; K72.90 Hepatic failure, unspecified without coma; K76.6 Portal hypertension; E87.2 Acidosis; M62.82 Rhabdomyolysis; N17.9 Acute kidney failure, unspecified; E87.1 Hypo-osmolality and hyponatremia; E87.6 Hypokalemia; I12.9 Hypertensive chronic kidney disease with stage 1 through stage 4 chronic kidney disease, or unspecified chronic kidney disease; E11.22 Type 2 diabetes mellitus with diabetic chronic kidney disease; N18.30 Chronic kidney disease, stage 3 unspecified; D63.1 Anemia in chronic kidney disease; E11.40 Type 2 diabetes mellitus with diabetic neuropathy, unspecified; E86.9 Volume depletion, unspecified; I95.9 Hypotension, unspecified; I69.954 Hemiplegia and hemiparesis following unspecified cerebrovascular disease affecting left non-dominant side; I25.10 Atherosclerotic heart disease of native coronary artery without angina pectoris; E66.01 Morbid (severe) obesity due to excess calories; E03.9 Hypothyroidism, unspecified; G73.7 Myopathy in diseases classified elsewhere; Z68.42 Body mass index [BMI] 45.0-49.9, adult; Z79.4 Long term (current) use of insulin; Z87.891 Personal history of nicotine dependence; Z20.822 Contact with and (suspected) exposure to COVID-19
CPT/HCPCS: G0378; J1756

== ENCOUNTER 2020-11-05 13:25 | Observation (INO) | payer MEDICARE ==
[~2020-11-05] VITALS: Ht 162.6 cm; Wt 100.0 kg
[~2020-11-05 13:25] MED LIST changes: +FAMOTIDINE20 M1 PO; +GENERLAC10 GM/15 M PO; +KLOR-CON M2020 MEQ PO; +LASIX 40 MG TAB40 MG PO; +MIDODRINE10 MG PO
--- NOTE | 2020-11-05 13:34 | NUR ---
PT ARRIVED TO [facility] ROOM 269 VIA WHEELCHAIR ACCOMPAINED BY SON VIA WHEELCHAIR. PT ASSISTED TO BED VIA NOREEN LIFT. ASSESSMENT AND VITALS COMPLETED. RESPIRATIONS ARE EVEN AND UNLABORED WITH NO DISTRESS NOTED. LUNG SOUNDS ARE CLEAR. EART RHYTHM IS NORMAL. BOWEL SOUNDS ARE ACTIVE, LAST REPORTED BM 11/05/20.ABD FIRM AND DISTENDED. PERITONERAL DRAIN NOTED IN RUQ. DRESSING REMAINS CDI. RADIAL PULSES STRONG. PEDAL PULSES WEAK. 2+ EDEMA NOTED TO BLE. HEEL PROTECTS APPLIED.DRESSING TO LLE CDI. SCATTERED BRUISING NOTED THROUGHOUT UPPER EXTREMITIES. #20G IN LFA STARTED, SITE FLUSHED. APPEARS HEALTHY AND PATENT. ALLERGIES NOTED. FALL RISK AND ALLERGY BAND APPLIED. PT DENIES OF ANY PAINS OR DISCOMFORTS AT THIS TIME. ALL SAFETY PRECAUTIONS ARE IN PLACE WITH CALL LIGHT IN REACH. WILL CONTINUE TO MONITOR.
[2020-11-05 14:21] VITALS: BP 99/60
--- NOTE | 2020-11-05 15:38 | NUR ---
PT RESTING IN SEMI FOWLERS POSITION WATCHING TV. RESPIRATIONS ARE EVEN AND UNLABORED WITH NO DISTRESS NOTED. #20G IN LAC REMAINS HEALTHY AND PATENT. PUREWHICK IN PLACE. PT DENIES OF ANY PAINS OR DISCOMFORTS AT THIS TIME. ALL SAFETY PRECAUTIONS ARE IN PLACE WITH CALL LIGHT IN REACH. WILL CONTINUE TO MONITOR
--- NOTE | 2020-11-05 18:00 | NUR ---
PT COMPLAINS OF 8/[address] DARDEN NOTIFIED. ORDER FOR ULTRAM 50 MG OBTAINED. PT TOLERATED WELL
[2020-11-05 19:00] VITALS: BP 93/54
--- NOTE | 2020-11-05 19:00 | NUR ---
REPORT RECEIVED FROM Josemanuel RUSH LPN, CARE OF PT ASSUMED AT THIS TIME.
--- NOTE | 2020-11-05 19:33 | NUR ---
PT LAYING IN BED, HAVING CONVERSATION ON MOBILE PHONE. PHYSICAL ASSESMENT COMPLETE. APPEARS COMFORTABLE AND IN NO DISTRESS. RESPIRATIONS REGULAR AND UNLABORED. LUNGS CLEAR AND DIMINISHED LIKELY SECONDARY TO BODY HABITUS. ABD LARGE AND SOFT, NON-TENDER. RUQ DRAIN DRESSING C/D/I. +1 B/L FOOT EDEMA, B/L FEET WITH HEEL PADS ON FOR COMFORT. L LOWER RAMIREZ DRESSING C/D/I, PT DECLINES OFFER TO REMOVE/CHANGE DRESSING. REQUESTS TO WAIT FOR WOUND CARE DOCTOR TO EVAL, WOUND CARE CONSULT IS PENDING. PUREWICK IN PLACE TO SUCTION. PT DENIES PAIN AT THIS TIME. PT DENIES NEEDS AT THIS TIME. CALL BOLANOS WITHIN REACH, AGREES TO CALL PRN. BED LOCKED IN LOW POSITION WITH BEDRAILS UP X2.
--- NOTE | 2020-11-05 21:15 | NUR ---
FINGERSTICK GLUCOSE 124mg/dl, PT IS SCHEDULED TO RECEIVE 30 UNITS REGULAR INSULIN BID WITHOUT SLIDING SCALE. SPOKE WITH DR. DARDEN FOR CLARIFICATION. ORDER IS TO HOLD DOSE SCHEDULED TONIGHT AT THIS TIME. RX CONSULT ORDERED TO ASSURE FOLLOW UP.
--- NOTE | 2020-11-05 21:25 | NUR ---
SCHEDULED MEDICATIONS ADMINISTERED, SEE E-MAR.
--- NOTE | 2020-11-05 23:54 | NUR ---
ULTRAM ADMINISTERED FOR C/O CRAMPING PAIN IN BLE, SEE E-MAR. BLE RUBBED WITH LOTION FOR COMFORT. PT REPOSITIONED FOR COMFORT.
[2020-11-06 04:21] VITALS: BP 100/60
--- NOTE | 2020-11-06 04:33 | NUR ---
Sima YU BODY WIRER IN ROOM TO COLLECT AM LABS.
[2020-11-06 05:24] LABS: HEMATOCRIT 30.8 % (37.0-47.0); MEAN CELL VOLUME 93.9 fL CALC (80.0-100.0); MEAN CORPUSCULAR HGB 30.5 pG CALC (26.0-32.0); MEAN CORPUSCULAR HGB CONC 32.5 g/dL CAL (32.0-36.0); RED BLOOD COUNT 3.28 mill/uL (4.20-5.60); RED CELL DISTRI WIDTH 14.3 % (11.5-15.5)
[2020-11-06 05:44] LABS: MAGNESIUM 2.1 mg/dL (1.6-2.3); POTASSIUM 3.5 mmol/l (3.5-5.1)
[2020-11-06 07:57] VITALS: BP 109/73
--- NOTE | 2020-11-06 07:59 | NUR ---
SHIFT CHANGE REPORT, PT AWAKE ALERT AND ORIENTED SITTING IN SEMI-FOWLERS POSITION IN BED, C/O PAIN TO GLUTEAL AREA STATING IT RESULTS FROM BEING IN ONE POSITION TOO LONG, ADVISED PT STAFF WILL ASSIST TO REPOSITION HER TO SIDE TO RELIEVE PRESSURE OFF BOTTOM AFTER MEAL, PUREWICK CATHETER IN PLACE WITH CLOUDY JOSE URINE, CALL BOLANOS IN REACH AND BED LOCKED IN LOWEST POSITION.
--- NOTE | 2020-11-06 10:22 | NUR ---
DR CHOI ROUNDED, DID DRESSING CHANGE, SAID IT NEEDS TO STAY ON X 7 DAYS
[2020-11-06 15:19] VITALS: BP 94/61
--- NOTE | 2020-11-06 16:02 | NUR ---
Patient worked on log rolling bed mobility and sit to stand push off transfer technique with multiple attempts to finish proper positioning, decrease trick movements, and decrease fall risks (needed Max to Mod A x 1-2 with constant verbal and tactile cuing provided to decrease trick movement and fall risks as patient tries to increase participation with functional weight bearing ADLs). Patient did AAROM exercises for B LE in seated position doing hip flexion, hip adduction, hip abduction, hamstring curls, knee extension, gluteal squeezes, and ankle AROM for 10 reps x 4 sets with constant verbal and tactile cuing to help improve limb positioning and decrease trick movements while decreasing burden of care from caregivers and family (1 to 3 rest periods lasting 1 to 2 minutes between each exercise routine).
--- NOTE | 2020-11-06 16:58 | NUR ---
PT RESTINGIN BED, STATES SHE IS WORN OUT FROM PHYSICAL THERAPY, ALL NEEDS ADDRESSED, CALL BOLANOS IN REACH.
[2020-11-06 19:00] VITALS: BP 101/59
--- NOTE | 2020-11-06 20:15 | NUR ---
PT RESTING QUIETLY IN BED AT TIME OF ASSESSMENTS. ALL ASSESSMENTS COMPLETED, PLEASE REFER TO DOCUMENTATION. BREATHING EVEN AND UNLABORED. NO COMPLAINTS VOICED. DENIES PAIN. SAFETY PRECAUTIONS IN PLACE, BED IN LOWEST POSITION, CALL LIGHT [id number] REACH. WILL CONTINUE TO MONITOR
--- NOTE | 2020-11-07 00:32 | NUR ---
PT RESTING QUIETLY AT THIS ITME. NO COMPLAINTS VOICED. BREATHING IS EVEN AND UNLABORED. SAFETY PRECAUTIONS REMAIN IN PLACE. WILL MONITOR
[2020-11-07 04:00] VITALS: BP 101/66
[2020-11-07 05:33] LABS: HEMATOCRIT 32.1 % (37.0-47.0); HEMOGLOBIN 10.3 g/dl (12.0-16.0); MEAN CELL VOLUME 94.1 fL CALC (80.0-100.0); MEAN CORPUSCULAR HGB 30.2 pG CALC (26.0-32.0); MEAN CORPUSCULAR HGB CONC 32.1 g/dL CAL (32.0-36.0); RED BLOOD COUNT 3.41 mill/uL (4.20-5.60); RED CELL DISTRI WIDTH 14.6 % (11.5-15.5)
--- NOTE | 2020-11-07 05:59 | NUR ---
PT RESTING QUIETLY AT THIS TIME. NO COMPLAINTS VOICED. DENIES PAIN. BREATHING EVEN AND UNLABORED. ABDOMEN DISTENDED, SOFT, AND NON-TENDER. SAFETY PRECQAUTIONS IN PLACE. WILL MONITOR.
[2020-11-07 06:05] LABS: CREATININE 2.1 mg/dL (0.5-1.0); MAGNESIUM 2.2 mg/dL (1.6-2.3)
[2020-11-07 06:13] LABS: POTASSIUM 4.5 mmol/l (3.5-5.1)
[2020-11-07 07:30] VITALS: BP 97/42
[2020-11-07 15:41] VITALS: BP 100/61
--- NOTE | 2020-11-07 16:52 | NUR ---
Patient did log rolling bed mobility and sit to stand push off technique with transfer re-training (3 to 4 reps) with constant verbal and tactile cuing to help decrease trick movements and fall risks. Patient did B LE AROM exercises in seated position doing knee extension, hip flexion, hip adduction, hip abduction, hamstring curls, gluteal squeezes, and ankle ROM for 10 reps x 3 sets with occasional verbal and tactile cuing to help maintain proper limb positioning to decrease trick movements and fall risks while improving ADL participation.
--- NOTE | 2020-11-07 17:53 | NUR ---
PT ASSISTED INTO HOME GOWN, AND HELPED GATHER ALL BELONGINGS. IV REMOVED, INTACT UPON REMOVAL. PT TOLERATED WELL. UPDATED FAMILY MEMBER JABARI ON D/C. CALL LIGHT WITHIN REACH.
--- NOTE | 2020-11-07 18:00 | NUR ---
D/C INSTRUCTIONS GIVEN TO PT. PT VERBALIZED UNDERSTANDING.
--- NOTE | 2020-11-07 18:18 | NUR ---
Discharge instructions given. Patient verbalizes understanding of same. Discharged in stable condition via medical transport to [facility] accompanied by staff. All belongings sent with pt including home wheel chair and paracentesis catheter kit. Elaine updated on d/c.
--- NOTE | 2020-11-07 19:25 | NUR ---
ATTEMPT MADE TO CALL REPORT TO REC FACILITY, PER CONSULTANT INTERNSHIP NURSE UNAVAILABLE AT THIS TIME. WILL ATTEMPT AGAIN
--- NOTE | 2020-11-08 08:07 | NUR ---
REPORT GIVEN THIS AM TO RN AT [facility].
== END 2020-11-07 18:12 ==
LOC: MS2 13:25
PROVIDERS: Nurse Practitioner; ADMIT Internal Medicine; ATTEND Internal Medicine
DX: R53.1 Weakness (principal); K72.90 Hepatic failure, unspecified without coma; R18.8 Other ascites; I95.9 Hypotension, unspecified; E87.1 Hypo-osmolality and hyponatremia; E87.6 Hypokalemia; E72.20 Disorder of urea cycle metabolism, unspecified; I25.10 Atherosclerotic heart disease of native coronary artery without angina pectoris; I69.954 Hemiplegia and hemiparesis following unspecified cerebrovascular disease affecting left non-dominant side; K76.6 Portal hypertension; I12.9 Hypertensive chronic kidney disease with stage 1 through stage 4 chronic kidney disease, or unspecified chronic kidney disease; E11.22 Type 2 diabetes mellitus with diabetic chronic kidney disease; I87.312 Chronic venous hypertension (idiopathic) with ulcer of left lower extremity; L97.829 Non-pressure chronic ulcer of other part of left lower leg with unspecified severity; Z87.891 Personal history of nicotine dependence; Z79.4 Long term (current) use of insulin; E66.9 Obesity, unspecified; Z68.37 Body mass index [BMI] 37.0-37.9, adult; E03.9 Hypothyroidism, unspecified; E11.40 Type 2 diabetes mellitus with diabetic neuropathy, unspecified; N18.30 Chronic kidney disease, stage 3 unspecified; N17.9 Acute kidney failure, unspecified; Z20.822 Contact with and (suspected) exposure to COVID-19
CPT/HCPCS: G0378; G0379; J1756

== ENCOUNTER 2020-11-27 10:24 | Inpatient (IN) | payer MEDICARE ==
[~2020-11-27] VITALS: Ht 162.6 cm; Wt 107.7 kg
--- NOTE | 2020-11-27 10:25 | NUR ---
TI ROOM FOR TRIAGE
--- NOTE | 2020-11-27 10:39 | NUR ---
MEDS RECONCILED, PATIENT STATES MEDICATIONS ARE THE SAME WHAT WE HAVE ON FILE AND SHE DID TAKE THE MEDIACTION PER SCHEDULE.
[2020-11-27 11:06] LABS: HEMATOCRIT 31.6 % (37.0-47.0); HEMOGLOBIN 10.3 g/dl (12.0-16.0); IMMATURE GRANULOCYTES 1.1 % (0.0-5.0); MEAN CORPUSCULAR HGB 30.7 pG CALC (26.0-32.0); MEAN CORPUSCULAR HGB CONC 32.6 g/dL CAL (32.0-36.0); NEUT# 5.49 thou/uL (2.00-7.15); RED BLOOD COUNT 3.36 mill/uL (4.20-5.60); RED CELL DISTRI WIDTH 14.7 % (11.5-15.5)
[2020-11-27 11:16] LABS: BILIRUBIN, TOTAL 0.5 mg/dL (0.0-1.4); CREATININE 2.9 mg/dL (0.5-1.0); POTASSIUM 4.2 mmol/l (3.5-5.1); TOTAL PROTEIN 5.7 g/dL (6.3-8.2)
[2020-11-27 11:23] LABS: ALBUMIN 2.7 g/dL (3.2-5.0)
--- NOTE | 2020-11-27 11:30 | NUR ---
CRITICAL RESULT RECEIVED FROM LAB BUN 92.
--- NOTE | 2020-11-27 12:24 | NUR ---
PLEURAX CATHETER DRAINED FOR 1000MLS OF GOLD COLORED FLUID. PATIENT TOLERATED WELL. STERILE TECHNIQUE MAINTAINED. PATIENT STABLE UPON COMPLETION.
[2020-11-27 12:31] LABS: URINE BILIRUBIN - DIPSTICK NEGATIVE (NEGATIVE); URINE BLOOD DIPSTICK NEGATIVE (NEGATIVE); URINE COLOR YELLOW; URINE GLUCOSE - DIPSTICK NEGATIVE (NEGATIVE); URINE KETONE NEGATIVE (NEGATIVE); URINE PH 5.5 (4.5-8.0); URINE PROTEIN - DIPSTICK NEGATIVE (NEG-TRACE); URINE SPECIFIC GRAVITY 1.015; URINE UROBILINOGEN - DIPSTICK 0.2 E.U./dL (0.2)
[2020-11-27 12:35] LABS: URINE LEUK ESTERASE SMALL (NEGATIVE); URINE NITRITE - DIPSTICK NEGATIVE (Negative)
[2020-11-27 12:40] LABS: URINE SQUAMOUS EPITHELIAL CELL MODERATE EPI/hpf (0-FEW)
--- NOTE | 2020-11-27 15:03 | NUR ---
GAVE REPORT TO MS RN, PT AWAITING TRANSPORT TO FLOOR R/T ORDERS BY
[2020-11-27 16:00] VITALS: BP 101/56
--- NOTE | 2020-11-27 16:00 | NUR ---
PT ARRIVED VIA STRETCHER WITH STAFF. IV AND TELE MONITOR IN PLACE.
--- NOTE | 2020-11-27 17:35 | NUR ---
ASSESSMENT IS COMPLETED: IV SITE IS FREE FROM REDNESS OR EDEMA. HR IS REG,PULSES ARE STRONG X4, ADBD IS SOFT WITH ACTIVE BS. BREATH SOUNDS ARE CLEAR,BILATERALLY, HAS SOME YELLOWING OF HER SKIN NOTED. +3 EDEMA NOTED ON BILATERAL FEET. DRESSING ON R RAMIREZ IS CDI. R LEG HAS SOME REDNESS AND SOME EDEMA NOTED. TELE MONITOR IN PLACE. PLACED A PUREWICK.
--- NOTE | 2020-11-27 19:26 | NUR ---
PT RESTING IN BED WATCHING TV, NO APPARENT DISTRESS OR DISCOMFORT. PHYSICAL ASSESMENT COMPLETED. PT A/OX3, COOPERATIVE. TELEMETRY #8641, REPORTEDLY NSR 70S. NON-INVASIVE HEMODYNAMICS STABLE AND WITHIN PT'S BASELINE. LUNGS CLEAR AND DIMINISHED LIKELY SECONDARY TO OBESE BODY HABITUS. RESPIRATIONS REGULAR AND UNLABORED. SP02 98% ON ROOM AIR. ABDOMEN DISTENDED AND SOFT. RIGHT SIDE PERITONEAL DRAIN WITH DRESSING CLEAN/DRY/INTACT. REPORTS LAST "NORMAL BM" 11/26/20. PT BLADDER INCONTINENT WITH PUREWICK IN PLACE. +3-4 PITTING EDEMA TO BLE. SILICONE DRESSINGS TO B/L SHINS. R-RAMIREZ WITH HEMATOMA WITH RUPTURED BLISTER. L-RAMIREZ WITH HEALING WOUND, APPEARS TO BE NEW EPITHELIAL LAYER, PINK AND SMOOTH. PICTURE DOCUMENTATION OBTAINED AND DRESSINGS REPLACED. WOUND CARE CONSULTED. PLAN OF CARE DISCUSSED WITH PATIENT. PT VERBALIZES UNDERSTANDING AND VERBALIZES AGRREEMENT. REQUESTS DIET COLA, DENIES FURTHER NEEDS. CALL BOLANOS WITHIN REACH, AGREES TO CALL PRN. ALL ITEMS WITHIN REACH. BED LOCKED IN LOW POSITION WITH BEDRAILS UP X2.
--- NOTE | 2020-11-27 19:43 | NUR ---
DIET COLA PROVIDED REQUESTED BY PT.
[2020-11-27 20:05] VITALS: BP 95/57
--- NOTE | 2020-11-27 20:40 | NUR ---
POINT OF CARE GLUCOSE 234mg/dl REPORTED BY Roman MCCARTY CNA. SCHEDULED MEDICATIONS ADMINISTERED, SEE E-MAR.
--- NOTE | 2020-11-27 20:58 | NUR ---
PT INCONTINENT OF MODERATE AMOUNT BROWN LIQUID STOOL. PT CLEANED AFTER INCONTINENCE. PUREWICK REPLACED. REDNESS NOTED UNDERBREAST AND ABDOMINAL FOLD, SKIN INTACT. POWDER APPLIED FOR MOISTURE MANAGMENT. GLUTEAL CLEFT EXCORIATED. BARRIER CREAM APPLIED. GOWN AND PARTIAL LINENS CHANGED.
[2020-11-28] VITALS: BP 102/59; BP 99/60
--- NOTE | 2020-11-28 | NUR ---
PT APPEARS TO BE SLEEPING COMFORTABLY. LAYING IN BED, EYES CLOSED. NO APPARENT DISTRESS. RESPIRATIONS REGULAR AND UNLABORED. CALL BOLANOS REMAINS WITHIN REACH.
--- NOTE | 2020-11-28 03:00 | NUR ---
PT REQUEST TO BE REPOSITIONED. PT REPOSITIONED TO LEFT SIDE FOR COMFORT. DENIES FURTHER NEEDS AT THIS TIME. CALL BOLANOS WITHIN REACH, AGREES TO CALL PRN.
[2020-11-28 04:00] VITALS: BP 105/66
--- NOTE | 2020-11-28 04:20 | NUR ---
Sima YU INK JET OPERATOR IN ROOM COLLECTING LABS. L-ELBOW NOTED TO HAVE SMALL SKIN TEAR. PT REPORTS HAPPENED WHEN EMS WAS TAKING HER OUT OF HER HOME. PICTURE DOCUMENTATION OBTAINED. TELFA SECURED WITH TEGADERM APPLIED. PT REPOSITION FOR COMFORT ONTO BACK AND HEELS OFFLOADED. DENIES FURTHER NEEDS AT THIS TIME. CALL BOLANOS WITHIN REACH, AGREES TO CALL PRN.
[2020-11-28 04:30] LABS: HEMATOCRIT 31.3 % (37.0-47.0); HEMOGLOBIN 9.9 g/dl (12.0-16.0); MEAN CELL VOLUME 95.1 fL CALC (80.0-100.0); MEAN CORPUSCULAR HGB 30.1 pG CALC (26.0-32.0); MEAN CORPUSCULAR HGB CONC 31.6 g/dL CAL (32.0-36.0); RED BLOOD COUNT 3.29 mill/uL (4.20-5.60); RED CELL DISTRI WIDTH 14.6 % (11.5-15.5)
[2020-11-28 04:47] LABS: ALBUMIN 2.3 g/dL (3.2-5.0); BILIRUBIN, TOTAL 0.4 mg/dL (0.0-1.4); POTASSIUM 3.8 mmol/l (3.5-5.1); TOTAL PROTEIN 5.3 g/dL (6.3-8.2)
[2020-11-28 04:48] LABS: CREATININE 1.9 mg/dL (0.5-1.0)
[2020-11-28 07:40] VITALS: BP 99/49
--- NOTE | 2020-11-28 07:40 | NUR ---
ASSESSMENT IS COMPLETED:IV SITE IS FREE FROM REDNESS OR EDEMA. HR IS REG,[PULSES ARE STRONG X4, ABD IS SOFT WITH ACTIVE BS. BREATH SOUNDS ARE CLEAR,BILATERALLY, DRESSING ON LEGS ARE CDI. PUREWICK IN PLACE. CONTINUE TO OSBERVE AND MONITOR.
--- NOTE | 2020-11-28 10:27 | NUR ---
INSTRUCTED PT TO MOVE HER LEGS IN BED FOR EXERCISE. TO LOOSEN THEM UP INSTEAD OF BEING STIFF.
[2020-11-28 11:00] VITALS: BP 92/59
--- NOTE | 2020-11-28 12:15 | NUR ---
PT IS RELAXING IN BED WITH NO DISTRESS NOTED. WOUND CARE CAME IN TO VISIT WITH PT AND CHECKED ALL WOUNDS. ORDERS PLACED ON THE CHART.
--- NOTE | 2020-11-28 16:00 | NUR ---
PT IS RELAXING IN BED OFF SETTING HER BOTTOM WITH A PILLOW PER WOUND CARE DR ORDER. CONTINEU TO OSBERVE AND MONITOR. IV SITE IS FREE FROM REDNESS OR EDEMA.
[2020-11-28 16:05] VITALS: BP 106/60
[2020-11-28 19:00] VITALS: BP 94/65
--- NOTE | 2020-11-28 19:00 | NUR ---
REPORT RECEIVED FROM Mariposa TOWNSEND LPN, CARE OF PTS ASSUMED AT THIS TIME.
--- NOTE | 2020-11-28 20:00 | NUR ---
PT RESTING IN BED WATCHING TV, NO APPARENT DISTRESS OR DISCOMFORT. PHYSICAL ASSESMENT COMPLETED. PT A/OX3, COOPERATIVE. TELEMETRY #8641, REPORTEDLY NSR 70S. NON-INVASIVE HEMODYNAMICS STABLE AND WITHIN PT'S BASELINE. LUNGS CLEAR AND DIMINISHED LIKELY SECONDARY TO OBESE BODY HABITUS. RESPIRATIONS REGULAR AND UNLABORED. SP02 98% ON ROOM AIR. ABDOMEN DISTENDED AND SOFT. RIGHT SIDE PERITONEAL DRAIN WITH DRESSING CLEAN/DRY/INTACT. REPORTS LAST "NORMAL BM" 11/26/20. PT BLADDER INCONTINENT WITH PUREWICK IN PLACE. +3-4 PITTING EDEMA TO BLE. SILICONE DRESSINGS TO B/L SHINS. R-RAMIREZ WITH HEMATOMA WITH RUPTURED BLISTER. L-RAMIREZ WITH HEALING WOUND, APPEARS TO BE NEW EPITHELIAL LAYER, PINK AND SMOOTH. PLAN OF CARE DISCUSSED WITH PATIENT. PT VERBALIZES UNDERSTANDING AND VERBALIZES AGRREEMENT. REQUESTS DIET COLA, DENIES FURTHER NEEDS. CALL BOLANOS WITHIN REACH, AGREES TO CALL PRN. ALL ITEMS WITHIN REACH. BED LOCKED IN LOW POSITION WITH BEDRAILS UP X2.
--- NOTE | 2020-11-28 21:00 | NUR ---
POINT OF CARE GLUCOSE 212mg/dL. PT REFUSING LACTULOSE, EDUCATION ON LACTULOSE AND AMMONIA LEVEL DISCUSSED. PT VERBALIZES UNDERSTANDING. CONTINUES TO REFUSE. SCHEDULED MEDICATIONS AMD REQUESTED PRN MEDICATIONS ADMINISTERED. SEE E-MAR.
--- NOTE | 2020-11-29 01:00 | NUR ---
PT APPEARS TO BE SLEEPING COMFORTABLY. LAYING IN BED, EYES CLOSED. NO APPARENT DISTRESS. RESPIRATIONS REGULAR AND UNLABORED. CALL BOLANOS REMAINS WITHIN REACH.
[2020-11-29 04:00] VITALS: BP 100/64
--- NOTE | 2020-11-29 04:33 | NUR ---
Josemanuel FLORES RAILROAD FIRER IN ROOM COLLECTING LABS.
[2020-11-29 04:54] LABS: HEMATOCRIT 31.2 % (37.0-47.0); HEMOGLOBIN 9.9 g/dl (12.0-16.0); MEAN CELL VOLUME 95.4 fL CALC (80.0-100.0); MEAN CORPUSCULAR HGB 30.3 pG CALC (26.0-32.0); MEAN CORPUSCULAR HGB CONC 31.7 g/dL CAL (32.0-36.0); RED BLOOD COUNT 3.27 mill/uL (4.20-5.60); RED CELL DISTRI WIDTH 14.7 % (11.5-15.5)
[2020-11-29 05:06] LABS: ALBUMIN 2.1 g/dL (3.2-5.0); CREATININE 1.6 mg/dL (0.5-1.0); POTASSIUM 3.3 mmol/l (3.5-5.1); TOTAL PROTEIN 4.8 g/dL (6.3-8.2)
[2020-11-29 05:07] LABS: BILIRUBIN, TOTAL 0.2 mg/dL (0.0-1.4)
--- NOTE | 2020-11-29 07:00 | NUR ---
PT REPORT RECEIVED FROM NIGHT NURSECARMENZA
--- NOTE | 2020-11-29 08:00 | NUR ---
PT WAS FOUND RESTING IN BED;PT IS A&OX3;VS AND ASSESSMENT WERE COMPLETED;PT HAS NO REPORTS OF PAIN AT THIS TIME;HEART SOUNDS ARE REGULAR IN RATE AND RHYTHM;TELE IS IN PLACE;LUNG SOUNDS ARE CLEAR;RESPIRATIONS ARE EVEN AND UNLABORED ON RA;#20G IV IN RAC IS RUNNING NS@100ML/HR;IV SITE APPEARS FREE OF COMPLICATIONS AT THIS TIME;PT HAS 3+EDEMA PRESENT IN FEET AND LEGS BILATERALLY;PT ALSO HAS A SKIN TEAR ON LEFT ELBOW;DRESSING IN PLACE IS CDI;PT HAS WOUNDS ON THE RT AND LT SHINS;DRESSING IN PLACE ARE CDI;PT HAS A PUREWICK IN PLACE DRAINING CLEAR YELLOW URINE;SAFETY PRECAUTIONS IN PLACE;CALL LIGHT WITHIN REACH;BED IN LOWEST POSITION;PT ENCOURAGED TO CALL WITH ANY NEEDS OR CONCERNS;WILL CONTINUE TO MONITOR.
[2020-11-29 08:30] VITALS: BP 93/58
--- NOTE | 2020-11-29 09:45 | NUR ---
AT BEDSIDE DISCUSSING POC WITH PT
--- NOTE | 2020-11-29 09:52 | NUR ---
S: MARLEE ELLIS is a 65 F who presents with generalized weakmess lethargy has been going on for the past 1-2 days. Patient did have generalized mild abdominal pain, she does have a drain for paracentesis completion in her abdomen. She has a history of CKD, CAD, hypothyroid, DM, HTN, ascities, +TOB, morbid obesity, hyperkalemia, and anemia All medications in patient's chart were reviewed. O: VS: BP <93/58 mm/Hg>, P<71 beats/minute>, RR<20 breaths/minute>,T<96.7 F> W <102kg>, HT<162.56 cm>, Scr=<1.6 mg/dL>,CrCl= 40.74 <ml/min> A: Blood culture shows no growth. Urine culture shows no growth. Body fluid culture shows Staphylococcus haemolyticus P: Patient is on Ceftriaxone 2 gm IV Q24H Vancomycin ordered for pharmacy to dose. Start Vancomycin 1500MG IV Q24H. Vancomycin trough is drawn before the 4th dose on Dec 02999 Vancomycin goal trough is between <10-15 mcg/ml>. Pharmacy will follow and or advise on antibiotics use as needed.
[2020-11-29 10:46] VITALS: BP 114/64
--- NOTE | 2020-11-29 12:00 | NUR ---
PT WAS FOUND RESTING IN BED IN SEMI-FOWLERS POSITION EATING LUNCH;PT HAS NO REPORTS OF PAIN AT THIS TIME;TELE IS IN PLACE;SAFETY PRECAUTIONS IN PLACE;CALL LIGHT WITHIN REACH;BED IN LOWEST POSITION;WILL CONTINUE TO MONITOR.
--- NOTE | 2020-11-29 13:02 | NUR ---
Patient did supine B LE AAROM exercises and are as folows: hip and knee flexion and extension, hip adduction and abduction, hip external and internal rotation, gluteal squeezes, and ankle AAROM exercises for 15 reps x 1 to 2 reps. with constant verbal and tactile cuing to help decrease trick movements and improve ADL participation. Patient tried to work with PT and caregivers doing log rolling bed mobility ADLs and sit to stand push off technique with 1 to 2 reps. with Max A x 1-2 (patient's pain symptoms on B LE, muscle weakness, and joint stiffness hinders patient ADL participation).
--- NOTE | 2020-11-29 13:45 | NUR ---
PT WAS BEING CLEANED OF INCONTINENT STOOL BY CARRIER WASHER;WHEN FINISHED PT WAS TURNED BACK ON HER SIDE;TWO SMALL SKIN TEARS WERE NOTED TO PRIOR HEMATOMAS ON HER RT ELBOW;PICTURE WAS OBTAINED;WOUND WAS DRESSED WITH TELFA PAD AND TEGADERM;PT TOLERATED WELL.
[2020-11-29 15:10] VITALS: BP 108/64
--- NOTE | 2020-11-29 16:00 | NUR ---
PT WAS FOUND RESTING IN BED IN SEMI-FOWLERS POSITION WATCHING TV;PT HAD BEEN CLEANED OF STOOL;TELE IS IN PLACE;#20G IV IN RAC IS RUNNING NS@10ML/HR;IV SITE APPEARS FREE OF COMPLICATIONS AT THIS TIME;SAFETY PRECAUTIONS IN PLACE;CALL LIGHT WITHIN REACH;BED IN LOWEST POSITION;WILL CONTINUE TO MONITOR.
--- NOTE | 2020-11-29 19:05 | NUR ---
REPORT FROM SOFIYA GRIFFIN. ASSUMED PT CARE.
--- NOTE | 2020-11-29 19:46 | NUR ---
PT INCONTINENT OF LARGE LOOSE BM. LINEN CHANGE AND PERICARE PROVIDED. NEW PURWIK PLACED. BARRIER CREAM APPLIED TO COCCYX. NO APPARENT DISTRESS NOTED. PT REPOSITIONED FOR COMFORT ON LEFT SIDE WITH EXTRA PILLOWS. DRESSING REMAINS CDI. CALL LIGHT WITHIN REACH. WILL CONTINUE TO MONITOR.
[2020-11-29 19:50] VITALS: BP 115/66
--- NOTE | 2020-11-29 20:07 | NUR ---
PT WOUND DRESSINGS WERE CHANGED PER MD ORDERS;RT AND LT ANT LEG FOAM DRESSINGS WERE REMOVED;LT LEG TO BE LEFT WITHOUT A DRESSING IN PLACE;RT LEG WAS REDRESSED WITH A LARGE TELFA AND PAPER TAPE;
[2020-11-29 23:30] VITALS: BP 119/63
--- NOTE | 2020-11-30 00:13 | NUR ---
PT RESTING IN BED WITH EYES CLOSED. NO APPARENT DISTRESS NOTED. RESPIRATIONS EVEN AND UNLABORED. IVF INFUSING WITHOUT DIFFICULTY. CALL LIGHT WITHIN REACH. WILL CONTINUE TO MONITOR.
--- NOTE | 2020-11-30 02:58 | NUR ---
PT INCONTINENT OF BOWEL AND BLADDER. PERICARE AND LINENS CHANGED. PT REPOSITIONED FOR COMFORT. TOLERATED WELL. CALL LIGHT WITHIN REACH. WILL CONTINUE TO MONITOR.
[2020-11-30 03:55] VITALS: BP 104/62
--- NOTE | 2020-11-30 04:45 | NUR ---
MERCHANT TAILOR AT BEDSIDE TO OBTAIN LABS.
[2020-11-30 05:21] LABS: CREATININE 1.4 mg/dL (0.5-1.0)
[2020-11-30 08:03] VITALS: BP 114/67
--- NOTE | 2020-11-30 08:15 | NUR ---
PATIENT WENT TO OR VIA STRETCHER BY GABY BASSETT.
--- NOTE | 2020-11-30 08:24 | NUR ---
PATIENT IS RESTING IN BED IN SEMI-FOWLERS. PATIENT IS ALERT AND OREINT X3. TELE IN PLACE. PATIENT STATED PAIN THAT IS GENERALIZED /. MEDICATED PATIENT WITH TYLENOL. PATIENT HAS DRESSING IN ABD THAT IS CDI AND LEFT ARM CDI. +3 EDEMA IN FEET ELEVATED LEGS IN PILLOW. PO FLUIDS PROVIDED. PATIENT DENIES ANY OTHER NEEDS AT THIS TIME. CALL LIGHT IN REACH.
--- NOTE | 2020-11-30 10:25 | NUR ---
PLUREX RIGHT SIDE ABD DRESSING REMOVED . PARACENTESIS TAP DONE IN THE ABD AT BEDSIDE GABY MEYER ASSISTED. REMOVED 2000 ML OF YELLOW FLUID. PATIENT TOLERATED WELL. CALL LIGHT IN REACH.
[2020-11-30 10:45] VITALS: BP 101/56
[2020-11-30 14:55] VITALS: BP 100/57
--- NOTE | 2020-11-30 15:37 | NUR ---
CHANGE PATIENT DRESSING ON BOTH ELBOWS AND TOOK PICTURE. CHANGE RIGHT RAMIREZ DRESSING. PATIENT TOLERATED WELL. PATIENT DENIES NEEDS AT THIS TIME. CALL LIGHT IN REACH.
[2020-11-30 19:00] VITALS: BP 107/59
[2020-11-30 23:30] VITALS: BP 101/55
--- NOTE | 2020-12-01 | NUR ---
PT C/O OF GENERAL BODY PAIN. REQUESTED TYLENOL. PT GIVEN TYLENOL. WILL CONTINUE TO MONITOR.
[2020-12-01 03:33] VITALS: BP 92/57
--- NOTE | 2020-12-01 03:59 | NUR ---
PT APPEARS COMFORTABLE AND IN NO DISTRESS. RESPIRATIONS REGULAR AND UNLABORED. PT INCONTINENT OF STOOL. PT CHANGED, WASHED AND BARRIER CREAM APPLIED TO BUTTOCKS. ITEMS REMAIN WITHIN REACH, CALL BOLANOS REMAINS WITHIN REACH. BED REMAINS LOCKED AND IN LOW POSITION WITH BEDRAILS UP X2. WILL CONTINUE TO MONITOR.
[2020-12-01 06:04] LABS: CREATININE 1.3 mg/dL (0.5-1.0); POTASSIUM 3.1 mmol/l (3.5-5.1)
[2020-12-01 08:04] VITALS: BP 110/50
--- NOTE | 2020-12-01 08:09 | NUR ---
PATIENT IS SEMI-FOWLERS IN BED. PATIENT IS ALERT AND OREINT X3. RESPS EVEN AND UNLABORED. BOTH ELBOWS DRESSING AND RIGHT RAMIREZ DRESSING CDI.PLUREX DRESSING IN ABD IS CDI. PAIIENT STATED PAIN ARMS. MEDICATED PATIENT WITH TYLENOL. TELE IN PLACE. CALL LIGHT IN REACH.
--- NOTE | 2020-12-01 10:24 | NUR ---
DR. DARDEN AT BEDSIDE TO ASSESS PATIENT. PATIENT BP IS 83/42 MD AWARE. PATIENT DENIES DIZZINESS. CALL LIGHT IN REACH.
[2020-12-01 10:49] VITALS: BP 83/42
--- NOTE | 2020-12-01 12:15 | NUR ---
PATIENT IS RESTING IN BED WITH LEGS ELEVATED IN PILLOWS. PATIENT DENIES ANY NEEDS AT THIS TIME. CALL LIGHT IN REACH.
[2020-12-01 14:50] VITALS: BP 102/58
--- NOTE | 2020-12-01 16:04 | NUR ---
PATIENT IS RESTING ON HER LEFT SIDE WITH NO DISTRESS NOTED. PATIENT DENIES NEEDS AT THIS TIME. CALL LIGHT IN REACH.
[2020-12-01 19:50] VITALS: BP 98/56
--- NOTE | 2020-12-01 21:51 | NUR ---
RECEIVIED REPORT FROM GOKUL NURSE. PHYSICAL ASSESMENT COMPLETE. PT CURRENTLY DENIES PAIN OR DISCOMFORT. SCHEDULED MEDICATIONS AND PRN MEDICATION ADMINISTERED, SEE E-MAR. PT C/O OF A HEADACHE. PLAN OF CARE REVIEWED, PT DENIES QUESTIONS, VERBALIZES UNDERSTANDING. ITEMS WITHIN REACH, BED LOCKED IN LOW POSITION W/ BEDRAILS UP X2. CALL BOLANOS WITHIN REACH, AGREES TO CALL PRN.
[2020-12-02] VITALS: BP 105/58
[2020-12-02 04:00] VITALS: BP 93/60
--- NOTE | 2020-12-02 04:13 | NUR ---
PT CLEANED AND CHANGED. NO SIGNS OF DISTRESS NOTED, RESP EVEN AND UNLABORED. PT VOICES NO NEEDS OR COMPLAINTS AT THIS TIME. CALL LIGHT IN REACH, CONTINUE TO MONITOR.
[2020-12-02 05:32] LABS: HEMATOCRIT 32.6 % (37.0-47.0); HEMOGLOBIN 9.9 g/dl (12.0-16.0); IMMATURE GRANULOCYTES 0.5 % (0.0-5.0); MEAN CELL VOLUME 99.1 fL CALC (80.0-100.0); MEAN CORPUSCULAR HGB 30.1 pG CALC (26.0-32.0); MEAN CORPUSCULAR HGB CONC 30.4 g/dL CAL (32.0-36.0); NEUT# 3.71 thou/uL (2.00-7.15); RED BLOOD COUNT 3.29 mill/uL (4.20-5.60); RED CELL DISTRI WIDTH 15.2 % (11.5-15.5)
[2020-12-02 05:59] LABS: ALBUMIN 2.3 g/dL (3.2-5.0); BILIRUBIN, TOTAL 0.2 mg/dL (0.0-1.4); CREATININE 1.2 mg/dL (0.5-1.0); MAGNESIUM 2.1 mg/dL (1.6-2.3); TOTAL PROTEIN 5.3 g/dL (6.3-8.2)
[2020-12-02 06:27] LABS: POTASSIUM 3.9 mmol/l (3.5-5.1)
--- NOTE | 2020-12-02 07:15 | NUR ---
REPORT RECEIVED FROM GABY NORWOOD
[2020-12-02 07:45] VITALS: BP 97/57
--- NOTE | 2020-12-02 09:30 | NUR ---
PT RESTING IN SEMI FOWLERS POSITION,A&O X3;VS OBTAINED AND ASSESSMENT COMPLETED;PT DENIES ANY CURRENT PAIN OR DISCOMFORTS,PAIN SCALE AND REPORTING EDUCATED;RESPIRATIONS EVEN AND UNLABORED ON RA,CLEAR LUNG SOUNDS;ABDOMEN DISTENDED/FIRM ON PALPATION;PLEURX DRAIN NOTED TO BE IN PLACE TO ABDOMEN;PUREWICK CATHETER PLACED DUE TO INCONTINENCE;WEAK PEDAL PULSES;DRESSINGS CHANGED AT THIS TIME TO RLE,BILATERAL ARMS AND COCCYX PER WOUND CARE ORDERS;PHOTOGRAPHS IN CHART;#22G TO LFA INFUSING NS @ 10ML/HR,SITE APPEARS HEALTHY;ACCUCHECK 109 AT THIS TIME;TELE MONITORING IN PLACE;PT RE-POSITIONED TO LEFT SIDE;PT DENIES ANY ADDITIONAL NEEDS AND IS ENCOURAGED TO CALL FOR ASSISTANCE IF NEEDED;FALL PRECAUTIONS IN PLACE WITH BED IN THE LOWEST POSITION AND CALL LIGHT IN REACH;WILL CONTINUE TO MONITOR
--- NOTE | 2020-12-02 10:06 | NUR ---
AT BEDSIDE DISCUSSING POC WITH PT.
[2020-12-02 10:30] VITALS: BP 97/47
--- NOTE | 2020-12-02 12:00 | NUR ---
PT RESTING IN SEMI FOWLERS POSITION;RESPIRATIONS EVEN AND UNLABORED ON RA;PT DENIES ANY CURRENT PAIN OR DISCOMFORTS;IV FLUIDS INFUSING WITH EASE PER ORDER;ABDOMINAL FLUID DRAINED FROM PLEURX CATHETER PER ORDER, 1200CC OF YELLOW FLUID NOTED;PT TOLERATED WELL;PT RE-POSITIONED TO LEFT SIDE PER REQUEST;ACCUCHECK 141, NO COVERAGE NEEDED;PT DENIES ANY ADDITIONAL NEEDS AND IS ENCOURAGED TO CALL FOR ASSISTANCE IF NEEDED;CALL LIGHT IN REACH;WILL CONTINUE TO MONITOR
[2020-12-02 14:57] VITALS: BP 98/46
--- NOTE | 2020-12-02 15:50 | NUR ---
PT RESTING IN RIGHT SIDE LAYING POSITION;RESPIRATIONS EVEN AND UNLABORED ON RA;PT DENIES ANY CURRENT PAIN OR DISCOMFORTS;IVF INFUSING TO LFA @ 10ML/HR;PUREWICK CATHETER IN PLACE;PT ENCOURAGED TO CALL FOR ASSISTANCE IF NEEDED;FALL PRECAUTIONS REMAIN IN PLACE WITH BED IN THE LOWEST POSITION AND CALL LIGHT IN REACH;WILL CONTINUE TO MONITOR
--- NOTE | 2020-12-02 18:39 | NUR ---
Physical Therapy Note Patient was seen and treated today. Physical Therapy Management 1. AROME of the UE x 10 repetitions x 2 sets 2. AAROME of the LE x 10 repetitions x 2 sets 3. Stretching exercises for both LE x 10 repetitions 4. Ankle pumping exercises x 10 reeptitions x 2 sets. 5. Quad-setting x 5 repetitions x 5 seconds hold each repetition. 6. Review of bed exercises. Patient verbalized understanding. Minimal fatigue observed after physicla theray session. Patient's call button observed to be within reach prior to leaving the room.
--- NOTE | 2020-12-02 22:39 | NUR ---
PATIENT CURRENTLY RESTING IN BED WITH EYES CLOSED. RESPIRATIONS EASY. MEDICATED FOR PAIN WITH POSITIVE EFFECT. PM MEDICATIONS GIVEN. NO ACUTE DISTRESS OBSERVED. BED IN LOW POSITION. CALL LIGHT WITHIN REACH. FALL PRECATIONS MAINTAINED.
[2020-12-03] VITALS: BP 109/59
--- NOTE | 2020-12-03 01:00 | NUR ---
PATIENT WAS UP TO SIDE OF BED TO ABOUT 40 MINUTES DUE TO LEG CRAMPS. PATIENT REPORTS FEELING BETTER AND WENT BACK TO BED. ALARM ON. BED IN LOW POSITIN. CALL LIGHT WITHIN REACH.
--- NOTE | 2020-12-03 01:40 | NUR ---
PATIENT TURNED AND REPOSITIONED FREQUENTLY. AQUACEL ON COCCYX FOR COMFORT. C/O LEG CRAMPS EARLIER, WARM COMPRESS APPLIED WITH LITTLE EFFECT. CURRENTLY RESTING QUIETLY WITH EYES CLOSED. RESPIRATIONS UNLABORED. BED IN LOW POSITION. CALL LIGHT WITHIN REACH. FALL PRECAUTIONS MAINTAINED.
--- NOTE | 2020-12-03 03:15 | NUR ---
PATIENT REQUESTED CRACKERS AND ICE WATER.
[2020-12-03 04:00] VITALS: BP 110/60
[2020-12-03 06:05] LABS: HEMATOCRIT 29.1 % (37.0-47.0); HEMOGLOBIN 9.1 g/dl (12.0-16.0); MEAN CELL VOLUME 96.4 fL CALC (80.0-100.0); MEAN CORPUSCULAR HGB 30.1 pG CALC (26.0-32.0); MEAN CORPUSCULAR HGB CONC 31.3 g/dL CAL (32.0-36.0); RED BLOOD COUNT 3.02 mill/uL (4.20-5.60); RED CELL DISTRI WIDTH 15.1 % (11.5-15.5)
[2020-12-03 06:32] LABS: ALBUMIN 2.3 g/dL (3.2-5.0); CREATININE 1.2 mg/dL (0.5-1.0); MAGNESIUM 2.1 mg/dL (1.6-2.3); POTASSIUM 3.8 mmol/l (3.5-5.1); TOTAL PROTEIN 4.8 g/dL (6.3-8.2)
[2020-12-03 06:44] LABS: BILIRUBIN, TOTAL 0.1 mg/dL (0.0-1.4)
--- NOTE | 2020-12-03 07:15 | NUR ---
REPORT RECEIVED FROM PARISRN
--- NOTE | 2020-12-03 08:45 | NUR ---
PT RESTING IN LEFT SIDE LAYING POSITION,A&O X3;VS OBTAINED AND ASSESSMENT COMPLETED;CURRENT BP 71/47 HR 68, PT ASYMPTOMATIC STATING "ITS ALWAYS LOW";PT DENIES ANY CURRENT PAIN OR DISCOMFORTS,PAIN SCALE AND REPORTING EDUCATED;RESPIRATIONS EVEN AND UNLABORED ON RA;ABDOMEN DISTENEDED/SOFT ON PALPATION AND ACTIVE IN ALL 4 QUADRANTS;PLUERX DRAIN TO RIGHT QUADRANT PATENT AND DRESSING CDI;PUREWICK CATHETER DRAINING YELLOW URINE WITH EASE;WEAK PEDAL PULSES;DRESSINGS CHANGED AT THIS TIME PER WOUND CARE ORDERS;ACCUCHECK 78, INSULIN HELD AND MD NOTIFIED;#22G TO LFA INFUSING NS @ 10ML/HR,SITE APPEARS HEALTHY;PT DENIES ANY ADDITIONAL NEEDS AND IS ENCOURAGED TO CALL FOR ASSISTANCE IF NEEDED;FALL PRECAUTIONS IN PLACE WITH BED IN THE LOWEST POSITION AND CALL LIGHT IN REACH;WILL CONTINUE TO MONITOR
[2020-12-03 08:46] VITALS: BP 71/47
--- NOTE | 2020-12-03 09:24 | NUR ---
AT BEDSIDE DISCUSSING POC.
--- NOTE | 2020-12-03 09:27 | NUR ---
BP RE-CHECK 83/56 HR 61
[2020-12-03 09:28] VITALS: BP 83/56
[2020-12-03 10:59] VITALS: BP 88/49
--- NOTE | 2020-12-03 11:00 | NUR ---
PT RESTING IN SEMI FOWLERS POSITION;RESPIRATIONS EVEN AND UNLABORED ON RA;PT DENIES ANY CURRENT PAIN OR DISCOMFORTS;IV FLUIDS INFUSING WITH EASE AND ABX STARTED;ACCUCHECK 109;PT EDUCATED ON PLANS TO BE D/C TO R AT APPROX 1400 AND VERBALIZES UNDERSTANDING;PT DENIES ANY ADDITIONAL NEEDS AND IS ENCOURAGED TO CALL FOR ASSISTANCE IF NEEDED;CALL LIGHT IN REACH;WILL CONTINUE TO MONITOR
[2020-12-03] MEDS ORDERED: GABAPENTIN400 M2 PO (13:14)
--- NOTE | 2020-12-03 13:35 | NUR ---
ALL DISCHARGE INSTRUCTIONS PROVIDED AT THIS TIME;PT VERBALIZES UNDERSTANDING AND DENIES ANY ADDITIONAL QUESTIONS OR NEEDS;INSTRUCTIONS TO BE GIVEN TO [facility] STAFF ALONG WITH RX FOR GABAPENTIN;WHEELCHAIR TO BE PROVIDED AND TRANSPORTATION BY [facility] STAFF MEMEBER;WILL CONTINUE TO MONITOR
--- NOTE | 2020-12-03 14:32 | NUR ---
Discharge instructions given. Patient verbalizes understanding of same. Discharged in stable condition via Wheelchair to *Other with *Other. All belongings sent with pt. PT TRANSPORTED TO [facility] VIA WHEELCHAIR ACCOMPANIED BY [facility] STAFF MEMBERS X2. ALL BELONINGS LEFT WITH PT AND INSTRUCTIONS PROVIDED TO STAFF MEMBERS FOR TRANSPORT. IV SITE REMOVED WITH CATHETER INTACT.
--- NOTE | 2020-12-03 14:39 | NUR ---
REPORT GIVEN TO GABY KATE AT [facility].
== END 2020-12-03 14:40 | DRG 371 ==
LOC: ED 10:24 → ED-I 14:09 → ED 14:19 → MS2 14:20
PROVIDERS: Family Medicine; Nurse Practitioner; Physician Assistant; ADMIT Internal Medicine; ATTEND Internal Medicine
DX: K65.2 Spontaneous bacterial peritonitis (principal); K76.7 Hepatorenal syndrome; E72.20 Disorder of urea cycle metabolism, unspecified; E87.1 Hypo-osmolality and hyponatremia; N17.9 Acute kidney failure, unspecified; I69.954 Hemiplegia and hemiparesis following unspecified cerebrovascular disease affecting left non-dominant side; R18.8 Other ascites; N39.0 Urinary tract infection, site not specified; K72.90 Hepatic failure, unspecified without coma; I12.9 Hypertensive chronic kidney disease with stage 1 through stage 4 chronic kidney disease, or unspecified chronic kidney disease; E11.22 Type 2 diabetes mellitus with diabetic chronic kidney disease; N18.30 Chronic kidney disease, stage 3 unspecified; D63.1 Anemia in chronic kidney disease; E86.9 Volume depletion, unspecified; E66.01 Morbid (severe) obesity due to excess calories; I95.9 Hypotension, unspecified; I25.10 Atherosclerotic heart disease of native coronary artery without angina pectoris; E03.9 Hypothyroidism, unspecified; E11.40 Type 2 diabetes mellitus with diabetic neuropathy, unspecified; E87.6 Hypokalemia; R23.4 Changes in skin texture; B96.89 Other specified bacterial agents as the cause of diseases classified elsewhere; B95.7 Other staphylococcus as the cause of diseases classified elsewhere; Z96.89 Presence of other specified functional implants; Z68.36 Body mass index [BMI] 36.0-36.9, adult; Z87.891 Personal history of nicotine dependence; Z79.4 Long term (current) use of insulin; Z20.822 Contact with and (suspected) exposure to COVID-19
CPT/HCPCS: G0378; J3370; P9047

== ENCOUNTER 2020-12-25 06:31 | Observation (INO) | payer MEDICARE ==
[~2020-12-25] VITALS: Ht 162.6 cm; Wt 98.0 kg
[~2020-12-25 06:31] MED LIST changes: +GABAPENTIN400 M2 PO
--- NOTE | 2020-12-25 06:52 | NUR ---
WOUND CARE AND DERMABONB BYY PHYSICIAN. PATIENT TOLERATED WELL
[2020-12-25] MEDS ORDERED: LASIX 40 MG TAB40 MG PO (06:56)
[2020-12-25] MEDS ORDERED: LEXAPRO10 MG PO (06:57)
--- NOTE | 2020-12-25 06:57 | NUR ---
MULTIPLE AREAS OF BRUSING NOTED TO EXTREMITIES X4. SKIN TEAR ABOUT 6 INCHES TO R FOREARM. DRSG TO RIGHT RAMIREZ FROM HOME CARE.
--- NOTE | 2020-12-25 07:00 | NUR ---
REPORT RECEIVED. PT RESTING IN STRETCHER, DR CABRAL AT BEDSIDE PLACING DERMABOND TO RIGHT FOREARM SKIN TEAR. PT TOLERATING WELL. DAUGHTER AT BEDSIDE.
[2020-12-25] MEDS ORDERED: NYSTAT-RX500 MU TOP (07:01)
[2020-12-25] MEDS ORDERED: [UNRECOGNIZED DRUG - OTHER] PO (07:05)
[2020-12-25] MEDS ORDERED: EQL ACETAMINOP325 MG PO (07:15)
[2020-12-25] MEDS ORDERED: VITAMIN D325 MCG PO (07:21)
[2020-12-25 07:26] LABS: HEMATOCRIT 32.1 % (37.0-47.0); HEMOGLOBIN 10.2 g/dl (12.0-16.0); IMMATURE GRANULOCYTES 0.9 % (0.0-5.0); MEAN CELL VOLUME 95.3 fL CALC (80.0-100.0); MEAN CORPUSCULAR HGB 30.3 pG CALC (26.0-32.0); MEAN CORPUSCULAR HGB CONC 31.8 g/dL CAL (32.0-36.0); NEUT# 5.44 thou/uL (2.00-7.15); RED BLOOD COUNT 3.37 mill/uL (4.20-5.60); RED CELL DISTRI WIDTH 14.5 % (11.5-15.5)
[2020-12-25 07:38] LABS: ALBUMIN 2.5 g/dL (3.2-5.0); BILIRUBIN, TOTAL 0.4 mg/dL (0.0-1.4); CREATININE 1.8 mg/dL (0.5-1.0); POTASSIUM 3.9 mmol/l (3.5-5.1); TOTAL PROTEIN 5.7 g/dL (6.3-8.2)
--- NOTE | 2020-12-25 08:00 | NUR ---
PATIENT RETURNED FROM CT AND MEDICATED FOR PAIN, SHE DECLINED TDAP AT THIS TIME STATING SHE HAD ONE LAST YEAR. DR TORRES NOTIFIED. PT WAS REPOSITIONED FOR COMFORT AND AWARE OF PENDING RESULTS AND WAIT TIME. CALL [facility] WITHIN REACH.
--- NOTE | 2020-12-25 08:50 | NUR ---
BRIEF CHANGED. PT READJUSTED FOR COMFORT. BP 94/51 WHICH PATIENT REPORTS IS NORMAL FOR HER. DAUGHTER AND PATIENT AWARE OF PENDING XRAYS AND WAIT TIME. CALL [facility] WITHIN REACH.
--- NOTE | 2020-12-25 08:54 | NUR ---
DR TRORES AT BEDSIDE TO DISCUSS RESULTS AND PLAN OF CARE.
--- NOTE | 2020-12-25 09:45 | NUR ---
PATIENT AWARE OF PENDING ADMISSION AND WAIT TIME. DAUGHTER REMAINS AT BEDSIDE, PT REPOSITIONED FOR COMFORT.
--- NOTE | 2020-12-25 10:15 | NUR ---
PT ADMITTED, ALL BELONGINGS WITH PT, TOOK PT IN WHEELCHAIR TO FLOOR
--- NOTE | 2020-12-25 10:21 | NUR ---
PT REPORT CALLED TO GABY VARGAS.
--- NOTE | 2020-12-25 10:27 | NUR ---
Admission Note Report Given to: GABY VARGAS Transported by: Wheelchair X Stretcher Transported with: X Nurse Transporter X Patent IV O2 X Book Repairer Location: ICU X MS2 PT TO ROOM 277 TRANSPORTED BY GABY DAVIS.
[2020-12-25 10:38] VITALS: BP 124/76
--- NOTE | 2020-12-25 10:38 | NUR ---
PT ARRIVED VIA STRETCHER. A&O . NO DISTRESS NOTED. PT C/O OF 11/28 RT SHOULDER PAIN DUE TO A FALL FROM HER BED. PT REPOSITIONED FOR COMFORT. CLEAR/DIMINISHED BREATH SOUNDS HEARD UPON AUSCULTATION. ACTIVE BOWEL SOUNDS X4 QUADRANTS. PARACENTESIS CATHETER IN PLACE, DRESSING CDI, PER PT PARACENTESIS DUE TO BE DONE TOMORROW; DAUGHTER TO BRING IN SUPPLIES. RT ARM SKIN TEAR, ED DRESSING IN PLACE. CHRONIC RT LEG WOUND; DRESSING PLACED BY ED IN PLACE. UNABLE TO OBTAIN PICTURES AT THIS TIME. +2 PITTING EDEMA NOTED TO BLE. SLIGHT REDDENED APPEARANCE. #22 LAC HEALTHY AND PATENT. WASH TANK TENDER IN PLACE. ORIENTED PT TO ROOM. ASSESSMENT COMPLETED. DISCUSSED POC. CALL LIGHT WITHIN REACH.
[2020-12-25 11:29] LABS: PROTHROMBIN TIME 10.3 SECONDS (9.0-12.5)
[2020-12-25 15:34] VITALS: BP 86/52
--- NOTE | 2020-12-25 15:45 | NUR ---
PT LAYING IN BED WITH DAUGHTER AT BEDSIDE. NO COMPLAINTS OR NEEDS AT THIS TIME. CALL LIGHT WITHIN REACH.
--- NOTE | 2020-12-25 18:15 | NUR ---
REPORT RECEIVED FROM IVAN GRIFFIN CARE OF PATIENT ASSUMED AT THIS TIME.
[2020-12-25 19:00] VITALS: BP 126/36
--- NOTE | 2020-12-25 19:20 | NUR ---
PATIENT WATCHING TV, RESTING. #22 GAUGE IV PATENT IN LEFT AC. PATINE READIN NORMAL SYYNUS RHYTHM ON TLEMETRY HER 64. DENIES ANY CURRENT PAIN.NOTED TO HAVE A DRESSING OVER SKIN TEAR ON RIGHT ARM AND A DRSSING ON HER RIGHT LOWER LEG. PITTING EDEMA 2+ NOTED ON BILATERAL EXTREMITIES. PT REQUESTED TO HAVE SOCKS REMOVED THEY WERE BECOMING TO TIGHT RELATED TO EDEMA. ACTIVE BOWEL SOUNDS AUSCULTATED IN ALL QUADRANTS. PATIENT EDUCATED ON USING SAFETY MEASURES INCLUDING USING THE CALL LIGHT. CALL LIGHT AND BEDSIDE TABLE WITHIN REACH.
--- NOTE | 2020-12-25 21:15 | NUR ---
MEDICATIONS ADMINISTERED ACCORDING TO EMAR. PATIENT STATES SHE WOULD LIKE SOME TYLENOL FOR SHOULDER AND COCCYX PAIN. PATIENT DECLINES LACTULOSE AT THIS TIME, AND DENIES SLIDING SCALE INSULIN. PATIENT EDUCATED ON MEDICATIONS AND DOSES AVAILABLE COMPARED TO PRESCRIBED DOSES. PATIENT VERBALISES UNDERSTANDING. WILL CONTINUE TO MONITOR.
--- NOTE | 2020-12-25 22:23 | NUR ---
PT DECLINES SCHEDULED LACTULOSE DOSE AND SLIDING SCALE INSULIN DOSE. MEDICATION EDUCATION PROVIDED. PT VERBALIZES UNDERSTANDING AND CONTINUES TO DECLINE. MEDICATIONS OMITTED ON E-MAR PER PT'S REFUSAL. DR. MOSELEY MADE AWARE.
[2020-12-25 23:15] VITALS: BP 93/49
--- NOTE | 2020-12-25 23:45 | NUR ---
PATIENT SLEEPING. WILL CON'T TO MONITOR
[2020-12-26 04:15] VITALS: BP 104/63
--- NOTE | 2020-12-26 04:15 | NUR ---
URINE SAMPLE COLLECTED AND SENT TO LAB BY Rizwana JACKSON CNA.
--- NOTE | 2020-12-26 05:34 | NUR ---
PATIENT RESTING COMFORTABLY. CALL LIGHT AND BED SIDE TABLE WITHIN REACH. DOES NOT NEED ANY ADDITIONAL ASSISTACE AT THIS TIME.
[2020-12-26 05:51] LABS: URINE BILIRUBIN - DIPSTICK NEGATIVE (NEGATIVE); URINE BLOOD DIPSTICK NEGATIVE (NEGATIVE); URINE COLOR YELLOW; URINE GLUCOSE - DIPSTICK NEGATIVE (NEGATIVE); URINE KETONE NEGATIVE (NEGATIVE); URINE LEUK ESTERASE NEGATIVE (NEGATIVE); URINE PH 5.5 (4.5-8.0); URINE PROTEIN - DIPSTICK NEGATIVE (NEG-TRACE); URINE UROBILINOGEN - DIPSTICK 0.2 E.U./dL (0.2)
[2020-12-26 05:55] LABS: HEMATOCRIT 34.6 % (37.0-47.0); HEMOGLOBIN 10.8 g/dl (12.0-16.0); MEAN CELL VOLUME 95.6 fL CALC (80.0-100.0); MEAN CORPUSCULAR HGB 29.8 pG CALC (26.0-32.0); MEAN CORPUSCULAR HGB CONC 31.2 g/dL CAL (32.0-36.0); RED BLOOD COUNT 3.62 mill/uL (4.20-5.60); RED CELL DISTRI WIDTH 14.5 % (11.5-15.5)
[2020-12-26 05:55] LABS: URINE NITRITE - DIPSTICK NEGATIVE (Negative)
[2020-12-26 06:01] LABS: CREATININE 1.9 mg/dL (0.5-1.0); MAGNESIUM 2.5 mg/dL (1.6-2.3); POTASSIUM 4.1 mmol/l (3.5-5.1)
--- NOTE | 2020-12-26 07:00 | NUR ---
PT REPORT RECEIVED FROM NIGHT NURSES, OVIDIO
--- NOTE | 2020-12-26 08:00 | NUR ---
PT WAS FOUND RESTING IN BED IN SEMI-TITUS'S POSITION;PT IS A&OX3;VS AND ASSESSMENT WERE COMPLETED;HEART SOUNDS ARE REGULAR IN RATE AND RHYTHM;TELE IS IN PLACE; LUNG SOUNDS ARE CLEAR AND DIMINISHED IN THE LOWER LOBES;PT HAS 2+ EDEMA IN THE FEET BILATERALLY;PUREWICK IN PLACE DRAINING CLEAR YELLOW URINE;#22G IV IN LAC IS SL, PATENT AND FREE OF COMPLICATIONS AT THIS TIME;PT HAS DRESSINGS IN PLACE TO RT ARM AND RT LEG THAT ARE CDI AT THIS TIME;PARACENTESIS CATHETHER IN PLACE;SAFETY PRECAUTIONS IN PLACE;CALL LIGHT WITHIN REACH;PT ENCOURAGED TO CALL WITH ANY NEEDS OR CONCERNS;WILL CONTINUE TO MONITOR.
[2020-12-26 08:02] VITALS: BP 133/82
--- NOTE | 2020-12-26 09:40 | NUR ---
AND DION SORIANO AT BEDSIDE DISCUSSING POC WITH PT.
--- NOTE | 2020-12-26 12:00 | NUR ---
PT WAS FOUND RESTING IN BED EATING LUNCH;PT HAS NO REPORTS OF PAIN AT THIS ITME;TELE IS IN PLACE;SAFETY PRECAUTIONS IN PLACE;CALL LIGHT WITHIN REACH;WILL CONTINUE TO MONITOR.
[2020-12-26 15:00] VITALS: BP 104/45
--- NOTE | 2020-12-26 15:30 | NUR ---
DRAINED 2L OF FLUID UTILIZING PLEURX DRAIN IN PT RT LOWER ABDOMEN;PT TOLERATED WELL.
--- NOTE | 2020-12-26 15:43 | NUR ---
attempted to see pt for P.T. however pt reported she had a headache and abdominal pain so she was not feeling well enough to participate at this time. [facility]
--- NOTE | 2020-12-26 16:00 | NUR ---
PT WAS FOUND RESTING IN BED;TELE IS IN PLACE;#22G IV IN LAC IS SL, PATENT AND APPEARS FREE OF COMPLICATIONS AT THIS TIME;SAFETY PRECAUTIONS IN PLACE;WILL CONTINUE TO MONITOR.
[2020-12-26 18:51] VITALS: BP 111/56
--- NOTE | 2020-12-26 19:24 | NUR ---
REPORT RECEIVED FROM ESME GRIFFIN. PATIENT CARE ASSUMED AT THIS TIME.
--- NOTE | 2020-12-26 19:40 | NUR ---
PATIENT RESTING COMFORTABLY. ASSESMENT PERFORMED AT THIS TIME. EDEMA NOTED ON BILATERAL LEGS +2. PATIENT STATES SHE HAS A HEADACHE AND WOULD LIKE TYLENOL IF POSSIBLE. REFUSING LACTULOSE FOR TONIGHT. INQUIRED ABOUT PNEMONIA VACCINE, PATIENT IS AGREABLE TO RECEIVE. WILL CON'T TO MONITOR.
--- NOTE | 2020-12-26 19:40 | NUR ---
PATIENT RESTING COMFORTABLY. ASSESMENT PERFORMED AT THIS TIME. EDEMA NOTED ON BILATERAL LEGS +2. PATIENT STATES SHE HAS A HEADACHE AND WOULD LIKE TYLENOL IF POSSIBLE. REFUSING LACTULOSE FOR TONIGHT. INQUIRED ABOUT PNEMONIA VACCINE, PATIENT IS AGREABLE TO RECEIVE. EDUCATED SAFETY MEASURES INCLUDING THE USE OF CALL LIGHT. CALL LIGHT AND BED SIDE TABLE WITH IN REACH.
--- NOTE | 2020-12-26 21:04 | NUR ---
PATIENT WATCHING TV COMFORTABLY. MEDICATED AT THIS TIME, SEE EMAR. PATIENT REFUSED LISPRO SLIDING SCALE, WILL ONLY TAKE LONG ACTING 20 UNITS. WILL CON'T TO MONITOR
[2020-12-26 23:45] VITALS: BP 90/51
[2020-12-27 03:51] VITALS: BP 94/48
[2020-12-27 05:59] LABS: HEMATOCRIT 30.6 % (37.0-47.0); HEMOGLOBIN 9.8 g/dl (12.0-16.0); MEAN CORPUSCULAR HGB 29.8 pG CALC (26.0-32.0); RED BLOOD COUNT 3.29 mill/uL (4.20-5.60); RED CELL DISTRI WIDTH 14.5 % (11.5-15.5)
[2020-12-27 06:19] LABS: CREATININE 1.8 mg/dL (0.5-1.0); POTASSIUM 3.8 mmol/l (3.5-5.1)
--- NOTE | 2020-12-27 07:00 | NUR ---
PT REPORT RECEIVED FROM NIGHT NURSES, HOPE
--- NOTE | 2020-12-27 08:00 | NUR ---
PT WAS FOUND RESTING IN BED IN SEMI-TITUS'S POSITION;PT IS A&OX3;VS AND ASSESSMENT WERE COMPLETED;PT IS REPORTING NO PAIN AT THIS TIME;HEART SOUNDS ARE REGULAR IN RATE AND RHYTHM;TELE IS IN PLACE;LUNG SOUNDS ARE CLEAR AND DIMINISHED IN THE LOWER LOBES;RESPIRATIONS ARE EVEN AND UNLABORED ON RA;ABDOMEN IS SOFT AND ACTIVE BOWEL SOUNDS IN ALL QUADRANTS;PT HAS 2+PITTING EDEMA PRESENT IN LL AND FEET BILATERALLY;#22G IV IN LFA IS SL, PATENT AND APPEARS FREE OF COMPLICATIONS AT THIS TIME;PUREWICK IN PLACE DRAINING CLEAR JOSE URINE AT THIS TIME;SAFETY PRECAUTIONS IN PLACE;CALL LIGHT WITHIN REACH;PT ENCOURAGED TO CALL WITH ANY ISSUES OR CONCERNS;WILL CONTINUE TO MONITOR.
[2020-12-27 10:21] VITALS: BP 102/53
--- NOTE | 2020-12-27 12:00 | NUR ---
PT WAS FOUND RESTING IN BED EATING LUNCH;PT HAS NO REPORTS OF PAIN AT THIS TIME;SAFETY PRECAUTIONS IN PLACE;TELE IS IN PLACE;SAFETY PRECAUTIONS IN PLACE;CALL LIGHT WITHIN REACH;WILL CONTINUE TO MONITOR.
[2020-12-27 15:30] VITALS: BP 99/54
--- NOTE | 2020-12-27 15:33 | NUR ---
Patient did supine B LE AAROM exercises doing hip and knee flexion and extension, hip adduction and abduction, low back rotation, gluteal squeezes, SLR, and ankle AAROM exercises for 15 reps x 2 sets with constant verbal and tactile cuing to help decrease trick movements and fall risks. Patient struggling with log rolling bed mobility and sit to stand push off transfers with max a x 2 with constant verbal and tactile cuing to help decrease fall risks.
--- NOTE | 2020-12-27 16:00 | NUR ---
PT WAS FOUND RESTING IN BED;TELE IS IN PLACE;DRESSING CHANGE WAS DONE ON LOWER RT RAMIREZ;WOUND IS CLOSED AT THIS TIME;CLEANSED WITH NS;ABD PAD APPLIED WITH COBAN TO COVER PER PT REQUEST;#22G IV IN LFA IS SL,PATENT AND APPEARS FREE OF COMPLICATIONS AT THIS TIME;SAFETY PRECAUTIONS IN PLACE;CALL LIGHT WITHIN REACH;WILL CONTINUE TO MONITOR.
--- NOTE | 2020-12-27 19:00 | NUR ---
REPORT RECEIVED FROM Tasha ACOSTA RN, CARE OF PT ASSUMED AT THIS TIME.
[2020-12-27 19:08] VITALS: BP 99/58
--- NOTE | 2020-12-27 20:00 | NUR ---
POINT OF CARE GLUCOSE 181mg/dl. COLLECTED BY Mahendra PATE CNA.
--- NOTE | 2020-12-27 20:15 | NUR ---
PT LAYING SEMIFOWLERS IN BED, TALKING ON MOBILE PHONE. PT HANGS UP AND PHYSICAL ASSESMENT COMPLETED. RESPIRATIONS REGULAR AND UNLABORED, DENIES SOB. ABD SOFT AND DISTENDED. RUQ PLEURX DRAIN WITH DRESSING C/D/I. RLE DRESSING C/D/I DATED 12/27/20. +2 PITTING EDEMA BLE. SCHEDULED MEDICATIONS AND SLIDING SCALE INSULIN ADMINISTERED. PRN APAP ADMINISTERED FOR L-SHOULDER PAIN 12/28. SEE E-MAR. PLAN OF CARE REVIEWED. EDUCATION ON MEDICATION PROVIDED. PT VERBALIZES UNDERSTANDING AND IS AGREEABLE TO PLAN OF CARE. PT DENIES NEEDS AT THIS TIME. CALL BOLANOS WITHIN REACH, AGREES TO CALL PRN.
[2020-12-27 23:35] VITALS: BP 101/57
[2020-12-28] VITALS (7 sets, daily range): BP systolic 92–114; BP diastolic 48–73
--- NOTE | 2020-12-28 00:15 | NUR ---
PT APPEARS TO BE SLEEPING COMFORTABLY. LAYING IN BED WITH EYES CLOSED. RESPIRATIONS REGULAR AND UNLABORED. NO APPARENT DISTRESS. CALL BOLANOS REMAINS WITHIN REACH.
--- NOTE | 2020-12-28 05:14 | NUR ---
SCHEDULED MEDICATIONS ADMINISTERED, SEE E-MAR. PT DENIES FURTHER NEEDS AT THIS TIME. CALL BOLANOS WITHIN REACH, AGREES TO CALL PRN.
[2020-12-28 06:25] LABS: HEMATOCRIT 33.1 % (37.0-47.0); HEMOGLOBIN 10.5 g/dl (12.0-16.0); MEAN CELL VOLUME 94.8 fL CALC (80.0-100.0); MEAN CORPUSCULAR HGB 30.1 pG CALC (26.0-32.0); MEAN CORPUSCULAR HGB CONC 31.7 g/dL CAL (32.0-36.0); RED BLOOD COUNT 3.49 mill/uL (4.20-5.60); RED CELL DISTRI WIDTH 14.3 % (11.5-15.5)
--- NOTE | 2020-12-28 06:32 | NUR ---
POINT OF CARE GLUCOSE 69mg/dl. JUICE AND KIAH CRACKERS WITH PEANUT BUTTER PROVIDED.
[2020-12-28 06:45] LABS: CREATININE 1.7 mg/dL (0.5-1.0); POTASSIUM 3.9 mmol/l (3.5-5.1)
--- NOTE | 2020-12-28 07:00 | NUR ---
REPORT RECEIVED FROM GABY HERR
--- NOTE | 2020-12-28 08:10 | NUR ---
PT RESTING IN SEMI FOWLERS POSITION,A&O X3;VS OBTAINED AND ASSESSMENT COMPLETED;PT DENIES ANY CURRENT PAIN OR DISCOMFORTS,PAIN SCALE AND REPORTING EDUCATED;RESPIRATIONS EVEN AND UNLABORED ON RA,CLEAR/DIMINISHED LUNG SOUNDS;ABDOMEN DISTENDED/FIRM ON PALPATION AND ACTIVE IN ALL 4 QUADRANTS;DRESSING TO RUQ CDI;WEAK PEDAL PULSES;DRESSING TO RT ARM CHANGED AT THIS TIME AND DRESSING TO RLE REMAINS CDI;#22G TO LAC FLUSHED BUT OCCLUDED, IV SITE TO BE REMOVED;TELE MONITORING IN PLACE;ACCUCHECK 100;PT DENIES ANY ADDITIONAL NEEDS AT THIS TIME AND IS ENCOURAGED TO CALL FOR ASSISTANCE IF NEEDED;FALL PRECAUTIONS IN PLACE WITH BED IN THE LOWEST POSITION AND CALL LIGHT IN REACH;WILL CONTINUE TO MONITOR
--- NOTE | 2020-12-28 09:53 | NUR ---
& ANUM ANRP AT BEDSIDE DISCUSSING POC WITH PT.
--- NOTE | 2020-12-28 11:05 | NUR ---
PT RESTING IN SEMI FOWLERS POSITION;RESPIRATIONS EVEN AND UNLABORED ON RA;PT DENIES ANY CURRENT PAIN OR NEEDS;TELE MONITORING IN PLACE;IV SITE TO LAC REMOVED WITH CATHETER INTACT, X1 ATTEMPT MADE BUT UNSUCCESSFUL;WRITTER WILL HAVE ANOTHER STAFF MEMBER ATTEMPT;ACCUCHECK 124, NO COVERAGE NEEDED;PT DENIES ANY ADDITIONAL NEEDS;ENCOURAGED TO CALL FOR ASSISTANCE IF NEEDED;FALL PRECAUTIONS IN PLACE WITH CALL LIGHT IN REACH;WILL CONTINUE TO MONITOR
--- NOTE | 2020-12-28 11:15 | NUR ---
NEW #22G STARTED TO LAC ON 1ST ATTEMPT BY INDRARN
--- NOTE | 2020-12-28 12:00 | NUR ---
2L OF YELLOW/CLEAR DRAINAGE REMOVED FROM PLEURX DRAIN PER ORDER, PT TOLERATED WELL AND CATHETER DRESSING CHANGED.WILL CONTINUE TO MONITOR
--- NOTE | 2020-12-28 15:20 | NUR ---
PT RESTING IN SEMI FOWLERS POSITION WITH PHYSICAL THERAPY AT BEDSIDE WORKING WITH PT;RESPIRATIONS EVEN AND UNLABORED ON RA;PT DENIES ANY CURRENT PAIN OR DISCOMFORTS;TELE MONITORING IN PLACE;IV SITE PATENT TO LAC;PT ENCOURAGED TO CALL FOR ASSISTANCE IF NEEDED;FALL PRECAUTIONS IN PLACE WITH BED IN THE LOWEST POSITION AND CALL LIGHT IN REACH;WILL CONTINUE TO MONITOR
--- NOTE | 2020-12-28 15:33 | NUR ---
Patient did B LE supine AAROM exercises: SLR, hip adduction and abduction, hip and knee flexion and extension, gluteal squeezes, ankle AAROM, and bridging exercises for 10 reps x 2 sets with constant verbal and tactile cuing to help decrease trick movements and fall risks. Patient also did log rolling bed mobility and supine to sitting push off technique with max A x 1 (attempted 2-3 reps) with constant verbal and tactile cuing to help decrease fall risks. Patient was asked to sit on the recliner chair, but refused with complaints of upset stomach today.
--- NOTE | 2020-12-28 20:30 | NUR ---
PATIENT LAYS IN FOLWER'S POSITION. ALERT AND ORIENTED X4. WATCHES TV. NO COMPLAINTS. NURSE ASSESSMENT PERFORMED. PATIENT WAS PULLED UP X2 MAX ASSIST TO BE ABLE TO SWALLOW MEDICATIONS TONIGHT, NO DIFFICULTY NOTED WITH SWALLOWING. LAC IV REMOVED DUE TO NOT FLUSHING PROPERLY, NEW IV PLACED ON L-WRIST 22 G. ON RA, NO SOB NOTED. DID PROVIDE TYLENOL FOR HEADACHE. RUQ DRAIN DRESSING CDI. FEET ELEVATED, DOES HAVE 2+ PEDAL AND LEG EDEMA BILATERALLY. CALL LIGHT WITHIN REACH.
--- NOTE | 2020-12-28 23:00 | NUR ---
PATIENT LAYS WITH HOB NEAR 30 DEGREES. RESTS WITH EYES CLOSED. NO ACUTE DISTRESS SHOWN. CALL LIGHT WITHIN REACH.
[2020-12-29] VITALS (7 sets, daily range): BP systolic 88–114; BP diastolic 32–66
[2020-12-29 05:10] LABS: HEMATOCRIT 31.1 % (37.0-47.0); HEMOGLOBIN 9.8 g/dl (12.0-16.0); MEAN CORPUSCULAR HGB 29.6 pG CALC (26.0-32.0); MEAN CORPUSCULAR HGB CONC 31.5 g/dL CAL (32.0-36.0); RED BLOOD COUNT 3.31 mill/uL (4.20-5.60); RED CELL DISTRI WIDTH 14.6 % (11.5-15.5)
[2020-12-29 05:22] LABS: CREATININE 1.6 mg/dL (0.5-1.0)
--- NOTE | 2020-12-29 05:25 | NUR ---
PATIENT AWAKENS EASILY WHEN SPOKEN TO. WAS PULLED UP WITH MAX ASSIST. IS ABLE TO SWALOOW HER MEDICATIONS. NO COMPLAINTS OR NEEDS AT THIS TIME. RUQ PLEURIC DRAINAGE DRESSING CDI. CALL LIGHT WITHIN REACH.
--- NOTE | 2020-12-29 07:10 | NUR ---
REPORT RECEIVED FROM ALTHEARN
--- NOTE | 2020-12-29 08:40 | NUR ---
PT RESTING IN SEMI FOWLERS POSITION,A&O X3;VS OBTAINED AND ASSESSMENT COMPLETED;PT DENIES ANY CURRENT PAIN OR DISCOMFORTS,PAIN SCALE AND REPORTING EDUCATED;RESPIRATIONS EVEN AND UNLABORED ON RA,CLEAR LUNG SOUNDS;ABDOMEN DISTENDED/FIRM ON PALPATION AND ACTIVE IN ALL 4 QUADRANTS;DRESSING TO RUQ PLEURX DRAIN CDI;WEAK PEDAL PULSES;DRESSING TO RT ARM AND RLE CDI;TELE MONITORING IN PLACE;#22G TO LW FLUSHED AND PATENT,SITE APPEARS HEALTHY;ACCUCHECK 90;PT DENIES ANY ADDITIONAL NEEDS AND IS ENCOURAGED TO CALL FOR ASSISTANCE IF NEEDED;FALL PRECAUTIONS REMAIN IN PLACE WITH BED IN THE LOWEST POSITION AND CALL LIGHT IN REACH;WILL CONTINUE TO MONITOR
--- NOTE | 2020-12-29 09:28 | NUR ---
AND ANUM ANRP AT BEDSIDE DISCUSSING POC.
--- NOTE | 2020-12-29 13:10 | NUR ---
PT RESTING IN SEMI FOWLERS POSITION;RESPIRATIONS EVEN AND UNLABORED ON RA;PT DENIES ANY CURRENT PAIN OR DISCOMFORTS;IV SITE PATENT;TELE MONITORING IN PLACE;2L OF YELLOW DRAINAGE REMOVED FROM PLEURX DRAIN PER ORDER,PT TOLERATED WELL;DRESSING TO RIGHT ARM AND RLE CHANGED AT THIS TIME;PT DENIES ANY ADDITIONAL NEEDS;ENCOURAGED TO CALL FOR ASSISTANCE IF NEEDED;CALL LIGHT IN REACH;WILL CONTINUE TO MONITOR
--- NOTE | 2020-12-29 15:35 | NUR ---
PT RESTING IN SEMI FOWLERS POSITION;RESPIRATIONS EVEN AND UNLABORED ON RA;PT REPORTS HEADACHE PAIN RATING 8/10 ON THE PAIN SCALE AND REQUESTS PAIN MEDICATION,PT MEDICATED WITH PRN TYLENOL 650MG PO;RESPIRATIONS EVEN AND UNLABORED ON RA;IV SITE PATENT;TELE MONITORING IN PLACE;PT DENIES ANY ADDITIONAL NEEDS AND IS ENCOURAGED TO CALL FOR ASSISTANCE IF NEEDED;CALL LIGHT IN REACH;WILL CONTINUE TO MONITOR
--- NOTE | 2020-12-29 22:00 | NUR ---
PATIENT ABLE TO SWALLOW MEDICATIONS PROPERLY. TYLENOL PROVIDED FOR HEADACHE AND RIGHT SHOULDER FROM HX OF FALL. ON RA, NO SOB NOTED, ALL DRESSING CDI INTACT INCLUDING RUQ PLEURIC DRAIN. WAS CLEANED UP BY HONEY BLENDER'S. WAS PULLED UP, REPOSITIONED. IV X1 INTACT, SLAINE LOCKED. CALL LIGHT WITHIN REACH.
--- NOTE | 2020-12-30 02:30 | NUR ---
PATIENT LAYS SUPINE. RESTS WITH EYES CLOSED. NO ACUTE DISTRESS SHOWN. CALL LIGHT WITHIN REACH.
[2020-12-30 03:03] VITALS: BP 97/54
--- NOTE | 2020-12-30 06:11 | NUR ---
PATIENT ABLE TO SWALLOW SYNTHROID. NO ACUTE DISTRESS SHOWN. CALL LIGHT WITHIN REACH.
[2020-12-30 07:25] VITALS: BP 110/62
--- NOTE | 2020-12-30 07:25 | NUR ---
PATIENT LAYING IN BED AT THIS TIME. ALERT AND ORIENTED X 3 DENIES ANY PAIN CURRENTLY AT THIS TIME. PATIENTS DRESSING ON BILATERAL ARMS ARE DRY AND INTACT. PLUREX DRAIN INTACT AT THIS TIME. LUNG HAMLIN ARE CLEAR IN ALL HAMLIN AT THIS TIME. HORTICULTURE SUPERVISOR DONE SEE INTERVENTIONS. PATIENT DOES EXHIBIT 2-21/2 + EDEMA IN LOWER LEGS. SIDERAILS ARE UP AT THIS TIME CALL LIGHT IS WITHIN REACH. TELE MONIOTOR IN PLACE.
[2020-12-30 10:32] VITALS: BP 100/61
--- NOTE | 2020-12-30 11:39 | NUR ---
PATIENT RESTING IN BED AT THIS TIME. PATIENT DENIES ANY PAIN OR NEEDS. SIDERAILS ARE UP CALL LIGHT IS WITHIN REACH. TELE MONITOR ON AND BEING MONITORED BY ED. AT THIS TIME.
--- NOTE | 2020-12-30 12:30 | NUR ---
2L OF YELLOW FLUID REMOVED AT THIS TIME VIA PLEURX CATH SITE BY NURSE Mariposa SANCHEZ RN WITH THE ASSISTANCE OF THIS FLOW MANAGER. PROCEEDURE DONE UNDER STERILE TECHNIQUE. AREA AROUND PLEURX CATH CLEAN AND NEW DRESSING APPLIED. MARIA DEL ROSARIO TOLERATED PROCEEDURE WITHOUT PAIN OR DIFFICULTY. PATIENT WILL CONTINUE TO BE MONITORED.
[2020-12-30 15:14] VITALS: BP 108/60
--- NOTE | 2020-12-30 16:04 | NUR ---
PATINENT LAYING IN BED AT THIS TIME. PATIENT DAUGHTER AT BEDSIDE. PATIENT DENIES ANY NEEDS AT THIS TIME. PATIENT DENEIS ANY PAIN. BILATERAL LEGS REMAIN UP ON PILLOW AT THIS TIME. DRESSING ON BILATERAL ARMS ARE DRY AND INSTACT. AND DRESSING ON RIGHT LOWER LEG DRY AND INTACT. SIDERAILS ARE UP X 2 CALL LIGHT WITHIN REACH AT THIS TIME.
[2020-12-30 19:00] VITALS: BP 93/57
--- NOTE | 2020-12-30 19:50 | NUR ---
PATIENT SEMI FOWLERS POSITION. RESPIRATIONS NONLABORED. ON TELEMETRY. HR REGULAR. DENIES PAIN. DRESSING TO ABD CDI. 2+ PITTING EDEMA NOTED TO BILATERAL FEET. ASSESSMENT COMPLETE AND CHARTED. FALL PRECAUTIONS MAINTAINED. BED IN LOW POSITION. CALL LIGHT WITHIN REACH.
--- NOTE | 2020-12-30 22:08 | NUR ---
DRESSINGS TO B/L FOREARMS REMOVED AND CLEANSED WITH NORMAL SALINE. TELFA, KERLEX, AND COBAN REAPPLIED BILATERALLY. PATIENT TOLERATED WELL. LEFT FOREARM HAS LARGE CLOT THAT IF REMOVED WILL REMOVE THE SKIN. PATIENT CURRENTLY RESTING SELMI FOWLERS POSITION. NO ACUTE DISTRESS OBSERVED. BED IN LOW POSITION. CALL LIGHT WITHIN REACH. FALL PRECAUTIONS MAINTAINED.
[2020-12-30 23:15] VITALS: BP 93/59
--- NOTE | 2020-12-31 02:10 | NUR ---
PATIENT RESTING QUIETLY. NO COMPLAINTS. RESPIRATIONS UNLABORED. BED IN LOW POSITION. CALL LIGHT WITHIN REACH. NO ACUTE DISTRESS NOTED.
[2020-12-31 03:30] VITALS: BP 101/53
[2020-12-31 05:01] LABS: HEMATOCRIT 32.7 % (37.0-47.0); HEMOGLOBIN 10.4 g/dl (12.0-16.0); MEAN CORPUSCULAR HGB 29.9 pG CALC (26.0-32.0); MEAN CORPUSCULAR HGB CONC 31.8 g/dL CAL (32.0-36.0); RED BLOOD COUNT 3.48 mill/uL (4.20-5.60); RED CELL DISTRI WIDTH 14.3 % (11.5-15.5)
[2020-12-31 05:12] LABS: CREATININE 1.9 mg/dL (0.5-1.0); MAGNESIUM 2.3 mg/dL (1.6-2.3); POTASSIUM 4.1 mmol/l (3.5-5.1)
[2020-12-31 07:17] VITALS: BP 108/63
--- NOTE | 2020-12-31 07:31 | NUR ---
SHIFT CHANGE REPORT, PT AWAKE ALERT AND ORIENTED LYING IN SUPINE POSITION IN BED, CO SHOULDER PAIN, DRESSINGS TO JOHANNA ARMS CDI, TELE MONITOR IN PLACE, CALL BOLANOS IN REACH, SET UP FOR MEAL, WILL CONTINUE TO MONITOR.
[2020-12-31 10:59] VITALS: BP 103/60
--- NOTE | 2020-12-31 11:49 | NUR ---
SLEEPING IN SUPINE POSITION, BREATHING EVEN AND NON-LABORED, AWAKENED TO VERBAL STIMULI, NO C/O DISCOMFORT, DRESSING TO LFA REMOVED USING 0.9NS TO SOFTEN FOR SAFE REMOVAL, DRESSINGWITH MODERATE AMOUNT DRIED BLOOD, WOUND CLEANED WITH 0.9 NS AND NEW DSD APPLIED AND SECURED WITH TAPE.
--- NOTE | 2020-12-31 14:22 | NUR ---
Discharge instructions given. Patient verbalizes understanding of same. Discharged in fair condition via Medical Transport to [facility] with *Other. All belongings sent with pt. PT LEFT @ 1410, WHEELCHAIR ACCOMPANYING IN MEDICAL TRANSPORT.
--- NOTE | 2020-12-31 15:11 | NUR ---
REPORT GIVEN TO NURSE LEWIS AT [facility], PT INROUTE TO FACILITY AT THIS TIME.
== END 2020-12-31 14:10 ==
LOC: ED 06:31 → ED-I 08:50 → ED 09:22 → MS2 09:23
PROVIDERS: Emergency Medicine; Family Medicine; Hospitalist; Nurse Practitioner; ADMIT Internal Medicine; ATTEND Internal Medicine
PROC: 0HQDXZZ Repair Right Lower Arm Skin, External Approach (ICD-10-PCS; principal; 2020-12-25)
PROC: 3E0234Z Introduction of Serum, Toxoid and Vaccine into Muscle, Percutaneous Approach (ICD-10-PCS; 2020-12-27)
DX: R62.7 Adult failure to thrive (principal); S40.011A Contusion of right shoulder, initial encounter; S51.811A Laceration without foreign body of right forearm, initial encounter; N17.9 Acute kidney failure, unspecified; M54.2 Cervicalgia; I12.9 Hypertensive chronic kidney disease with stage 1 through stage 4 chronic kidney disease, or unspecified chronic kidney disease; E11.22 Type 2 diabetes mellitus with diabetic chronic kidney disease; N18.9 Chronic kidney disease, unspecified; K72.90 Hepatic failure, unspecified without coma; K74.60 Unspecified cirrhosis of liver; R18.8 Other ascites; D63.1 Anemia in chronic kidney disease; I95.9 Hypotension, unspecified; E87.1 Hypo-osmolality and hyponatremia; E87.6 Hypokalemia; E11.40 Type 2 diabetes mellitus with diabetic neuropathy, unspecified; B37.3 Candidiasis of vulva and vagina; I25.10 Atherosclerotic heart disease of native coronary artery without angina pectoris; I69.954 Hemiplegia and hemiparesis following unspecified cerebrovascular disease affecting left non-dominant side; E66.01 Morbid (severe) obesity due to excess calories; W06.XXXA Fall from bed, initial encounter; Y92.003 Bedroom of unspecified non-institutional (private) residence as the place of occurrence of the external cause; Z23 Encounter for immunization; Z96.89 Presence of other specified functional implants; Z87.891 Personal history of nicotine dependence; Z79.4 Long term (current) use of insulin; Z68.37 Body mass index [BMI] 37.0-37.9, adult; Z74.01 Bed confinement status; Z20.822 Contact with and (suspected) exposure to COVID-19
CPT/HCPCS: G0378